=== PATIENT | female | born 1975 | race Caucasian/White ===

== ENCOUNTER 2024-03-22 21:37 | Emergency (ER) | payer MEDICARE, BC, SELFPAY ==
[2024-03-22 21:38] VITALS: BP 159/98
[2024-03-22 21:39] VITALS: BP 159/98; BMI 25.6
[2024-03-22 22:00] VITALS: BP 155/129
--- NOTE | 2024-03-22 22:23 | ED.GENMED ---
History of Present Illness
<Irma Smith MD - Last Filed: 03/23/24 17:07>
General
Chief Complaint: Fall
Source: patient and significant other
Time Seen by Provider: 03/22/24 22:17
History of Present Illness
History of Present Illness:
49-year-old female who went to '[place] hour' with her significant other who is here with her. He states that they drink alcohol, and when they were getting out of the car at their home, she fell, hitting her head. There was no loss of
consciousness. He assisted her into the house but once they noted the bleeding at the left forehead area they called 911. Patient denies headache, neck pain, chest pain, shortness of breath. She does describe left shoulder pain which is quite
uncomfortable. No numbness or tingling. No visual changes. Patient took the cervical collar off. This was promptly replaced when I entered the room.
Past History
<Irma Smith MD - Last Filed: 03/23/24 17:07>
Past History
ED Past Medical History: Other (Insulin-dependent diabetes)
ED Past Surgical History: Other (Kidney and pancreas transplant)
Social History
Tobacco: Non-smoker
Alcohol: Occasional
Drug: None
Phy Exam
<Irma Smith MD - Last Filed: 03/23/24 17:07>
Physical Exam
Physical Exam:
GENERAL: Alert , obviously intoxicated but lucid
EYE: pupils equal and reactive, EOMI, no photophobia
NECK: Supple, no significant adenopathy, no midline tenderness.
ENT: o/p clr, mmm.
CARDIAC: Regular rate and rhythm .
LUNGS: Clear breath sounds bilaterally, no acute respiratory distress, no wheezes/rales/rhonchi
ABDOMEN: Soft, without focal tenderness, no r/g, no cvat
NEUROLOGICAL: Alert and oriented, no focal neuro deficits
SKIN: Warm and dry, laceration noted L eyebrow
MUSCULOSKELETAL: No edema, well perfused. There is tenderness palpation noted at the AC joint and humeral head area with limited range of motion due to pain. No deformity noted. No tenderness to palpation noted of distal humerus elbow forearm etc.
PSYCH: Normal and appropriate interaction.
Course
<Irma Smith MD - Last Filed: 03/23/24 17:07>
Orders/Labs/Results
Orders:
Orders
03/22/24 23:00
Oxycodone/Acetaminophen [Percocet 5/325] 1 tablet PO NOW STA
03/22/24 23:02
Cardiac Monitoring- Treatment ONCE
03/23/24 00:00
CT Cervical Spine W/o Iv Contr Urgent
Reason For Exam: fall
CT Head W/o Iv Contrast Urgent
Reason For Exam: fall, head trauma
CR Shoulder, Trauma - Left Urgent
Reason For Exam: fall, pain
03/23/24 01:06
Oxycodone/Acetaminophen [Percocet 5/325] 1 tablet .ROUTE .STK-MED ONE
03/23/24 01:09
Oxycodone/Acetaminophen [Percocet 5/325] 1 tablet PO NOW STA
Vital Signs
Initial and Last Documented VS:
Initial Vital Signs
BP
159/98
03/22/24 21:38
Last Documented Vital Signs
Temp Pulse Resp BP Pulse Ox
97.8 F 76 11 161/97 97
03/22/24 22:04 03/23/24 00:00 03/23/24 00:00 03/23/24 00:00 03/23/24 00:00
<Waylon Alamo MD - Last Filed: 03/24/24 08:59>
Orders/Labs/Results
Orders:
Orders
03/22/24 23:00
Oxycodone/Acetaminophen [Percocet 5/325] 1 tablet PO NOW STA
03/22/24 23:02
Cardiac Monitoring- Treatment ONCE
03/23/24 00:00
CT Cervical Spine W/o Iv Contr Urgent
Reason For Exam: fall
CT Head W/o Iv Contrast Urgent
Reason For Exam: fall, head trauma
CR Shoulder, Trauma - Left Urgent
Reason For Exam: fall, pain
03/23/24 01:06
Oxycodone/Acetaminophen [Percocet 5/325] 1 tablet .ROUTE .STK-MED ONE
03/23/24 01:09
Oxycodone/Acetaminophen [Percocet 5/325] 1 tablet PO NOW STA
Vital Signs
Initial and Last Documented VS:
Initial Vital Signs
BP
159/98
03/22/24 21:38
Last Documented Vital Signs
Temp Pulse Resp BP Pulse Ox
97.8 F 76 11 161/97 97
03/22/24 22:04 03/23/24 00:00 03/23/24 00:00 03/23/24 00:00 03/23/24 00:00
Procedures
<Irma Smith MD - Last Filed: 03/23/24 17:07>
Laceration Closure
Left Eye brow:
Status of Wound: clean
Size of Wound in cm: 3.5
Description of Wound Edges: ragged
Preparation: cleaned with saline
Anesthesia: 1% Lidocaine with epi
Revision/Debridement: routine- no revision
Wound exploration: explored to base- no FB
Type of Closure: single layer closure
Skin Closure Material: 5-0 prolene
Number of sutures: 4
<Waylon Alamo MD - Last Filed: 03/24/24 08:59>
*Critical Care Note
Total Time (30-74mins, 75-104mins- exclusive of procedures): Not Applicable
<Irma Smith MD - Last Filed: 03/23/24 17:07>
Update Note
Update Note:
Patient presents to the Emergency Department with fall
Number and Complexity of Problems Addressed at the Encounter
� Chronic conditions affecting care:
� Acute Exacerbation and/or Progression of Chronic Illness:
� Differential Diagnosis includes: But not limited to intracranial bleed, cervical fracture, shoulder fracture, shoulder dislocation, etc. etc.
Amount and/or Complexity of Data to be Reviewed and Analyzed
� I performed an independent evaluation of and my interpretation is:
EKG:
CT: Vision report head CT no acute hemorrhage herniation or hydrocephalus, no fracture. Cervical CT vision report no acute fracture or traumatic malalignment. Multilevel degenerative changes of the cervical spine.
Xrays: Read by me, glenoid fracture noted, suspect AC separation
Laboratory Studies:
Other:
� Review of other/old records reveals:
� Clinical information was obtained by an independent historian: Partner who is bedside
� Prescriptions/Medications Considered but not given:
� Further testing considered but not performed:
Risk of Complications and/or Morbidity or Mortality of Patient Management
� Social determinants of health affecting care:
� Discussion with other providers (PCP, Hospitalists, Consultants, etc):
� Escalation of care including admission/observation vs risk of discharge considered: Pt still with collar in place, awaiting studies. She describes severe L shoulder pain, requesting pain meds repeatedly. Weighing r/b with
her intoxication, she is alert and I do not suspect that one dose of percocet will be overly sedating, will place on monitor.
X-ray consistent with AC separation and glenoid fracture. Patient will be given a shoulder sling, pain meds, and prompt Ortho follow-up. May need further imaging such as MR from orthopedics. Laceration repaired after wound cleaned, will need
suture removal in 5 days. Patient awake and alert, partner remains at bedside, aware of importance of follow-up and reasons to return to the ER.
<Waylon Alamo MD - Last Filed: 03/24/24 08:59>
Update Note
Update Note:
Patient presents to the Emergency Department with fall
Number and Complexity of Problems Addressed at the Encounter
� Chronic conditions affecting care:
� Acute Exacerbation and/or Progression of Chronic Illness:
� Differential Diagnosis includes: But not limited to intracranial bleed, cervical fracture, shoulder fracture, shoulder dislocation, etc. etc.
Amount and/or Complexity of Data to be Reviewed and Analyzed
� I performed an independent evaluation of and my interpretation is:
EKG:
CT: Vision report head CT no acute hemorrhage herniation or hydrocephalus, no fracture. Cervical CT vision report no acute fracture or traumatic malalignment. Multilevel degenerative changes of the cervical spine.
Xrays: Read by me, glenoid fracture noted, suspect AC separation
Laboratory Studies:
Other:
� Review of other/old records reveals:
� Clinical information was obtained by an independent historian: Partner who is bedside
� Prescriptions/Medications Considered but not given:
� Further testing considered but not performed:
Risk of Complications and/or Morbidity or Mortality of Patient Management
� Social determinants of health affecting care:
� Discussion with other providers (PCP, Hospitalists, Consultants, etc):
� Escalation of care including admission/observation vs risk of discharge considered: Pt still with collar in place, awaiting studies. She describes severe L shoulder pain, requesting pain meds repeatedly. Weighing r/b with
her intoxication, she is alert and I do not suspect that one dose of percocet will be overly sedating, will place on monitor.
X-ray consistent with AC separation and glenoid fracture. Patient will be given a shoulder sling, pain meds, and prompt Ortho follow-up. May need further imaging such as MR from orthopedics. Laceration repaired after wound cleaned, will need
suture removal in 5 days. Patient awake and alert, partner remains at bedside, aware of importance of follow-up and reasons to return to the ER.
1320... Discussed with patient and her significant other. Aware of thyroid nodule and need for follow-up ultrasound. Also aware of small chip fragment lateral to the C6 superior articular facet. Will follow-up closely with orthopedist and arrange
for follow-up ultrasound of her thyroid
ED Attending Note
<Irma Smith MD - Last Filed: 03/23/24 17:07>
-
Portions of this chart may have been created with voice recognition software.� Occasional wrong word or��sound alike� substitutions may have occurred due to the inherent limitations of voice recognition software.
Discharge Plan
Departure
Patient Disposition: Home (Routine Discharge)
Date of Disposition: 03/23/24
Time of Disposition: 01:13
Patient with high blood pressure during this ER visit?: Yes
Condition: Good
Discharge Problem:
glenoid fracture, AC separation, Laceration
Instructions: Shoulder Blade Fracture, Head Injury in Adults (DC), Laceration Repair With Stitches (DC), shoulder, BLOOD PRESSURE
Prescriptions:
New
oxycodone-acetaminophen [Percocet] 5-325 mg tablet
1 tab PO Q4HPRN PRN (Reason: pain) Qty: 11 0RF
No Action
atorvastatin 10 mg Tablet
10 mg PO QPM
famotidine 40 mg Tablet
40 mg PO QPM
prednisone 5 mg Tablet
5 mg PO DAILY
atenolol 25 mg Tablet
12.5 mg PO QPM
aspirin 81 mg Tablet,Delayed Release (Dr/Ec)
81 mg PO QPM
trazodone 150 mg Tablet
150 mg PO QPM
clonazepam 2 mg Tablet
1 mg PO DAILY
clonazepam 2 mg Tablet
2 mg PO QPM
fludrocortisone 0.1 mg Tablet
0.1 mg PO DAILY
tacrolimus 0.5 mg Capsule
1.5 mg PO Q12H
insulin aspart U-100 [Novolog FlexPen U-100 Insulin] 100 unit/mL (3 mL) Insulin Pen
1 sliding scale dose SC MEALS
Patient Comments:
03/22/2024: 1 unit for > 150 BS for every 15 carbs
Dialyvite 100-1 mg Tablet
1 tab PO DAILY
cholecalciferol (vitamin D3) 50 mcg (2,000 unit) Tablet
50 mcg PO DAILY
Creon 24,000-76,000 -120,000 unit Capsule,Delayed Release(Dr/Ec)
1 cap PO MEALS PRN (Reason: malabsorption)
insulin degludec [Tresiba FlexTouch U-100] 100 unit/mL (3 mL) Insulin Pen
10 unit SC DAILY
Referrals:
Afia Vines I., DO [Active] - 03/25/24
Elbert Gee MD [Family Provider] - Follow up in 2-3 days
Activity Restrictions/Additional Instructions:
YOU HAD 4 SUTURES PLACED. THESE WILL NEED TO BE REMOVED IN 5 DAYS. PLEASE SEE YOUR FAMILY DOCTOR TO HAVE THIS PERFORMED. YOU HAVE A FRACTURE OF YOUR GLENOID, WHICH IS PART OF YOUR SHOULDER BLADE. YOU WILL NEED FURTHER MANAGEMENT OF THIS WITH THE
ORTHOPEDIC DOCTOR. PLEASE CALL THE DOCTOR ON MONDAY FOR PROMPT FOLLOW-UP. YOU MAY NEED FURTHER TESTING. IF YOU DEVELOP INCREASING OR NEW PAIN, VOMITING, FEVER, NUMBNESS, TINGLING, SEVERE DIZZINESS, SEVERE HEADACHE, OR OTHER WORRISOME SIGNS,
PLEASE RETURN TO THE ER IMMEDIATELY.
Interventions
Interventions:
*Risk Screen - Suicide Last Done: 03/22/24 21:39
*General Assessment Last Done: 03/22/24 21:39
*Neglect/Abuse Screening Last Done: 03/22/24 21:39
ED- Fall Risk Assessment Last Done: 03/23/24 01:34
*ED COVID-19 Vaccine History Last Done: 03/22/24 21:39
*Nursing Disposition Last Done: 03/23/24 01:34
ED-Musculoskeletal Assessment Last Done: 03/22/24 22:04
ED- Neurological Assessment Last Done: 03/22/24 22:04
ED-Skin Assessment Last Done: 03/22/24 22:04
Discharge Date and Time
Discharge Date/Time: 03/23/24 01:34
Print Language: PERSIAN
[2024-03-22] MEDS: PERCOCET 5/325 1 TABLET PO (23:04)
[2024-03-22 23:12] VITALS: BP 175/100
[2024-03-23] VITALS: BP 161/97
[2024-03-23] MEDS: PERCOCET 5/325 1 TABLET PO (01:09)
== END 2024-03-23 01:34 | disposition home or self-care (01) ==
LOC: EMR 21:37
PROVIDERS: EMERGENCY PHYSICIAN Emergency Medicine; FAMILY PHYSICIAN Internal Medicine
DX: S01.112A Laceration without foreign body of left eyelid and periocular area, initial encounter (principal); S42.141A Displaced fracture of glenoid cavity of scapula, right shoulder, initial encounter for closed fracture; S43.102A Unspecified dislocation of left acromioclavicular joint, initial encounter; V48.4XXA Person boarding or alighting a car injured in noncollision transport accident, initial encounter; E11.9 Type 2 diabetes mellitus without complications; Z79.4 Long term (current) use of insulin; Z94.83 Pancreas transplant status
CPT/HCPCS: 12013; 99284; 70450; 72125; 73030

== ENCOUNTER → 2024-04-01 07:23 | Outpatient (REF) | payer MEDICARE, BC, SELFPAY | LOC: RAD 07:23 | PROVIDERS: ATTENDING PHYSICIAN Orthopaedic Surgery; FAMILY PHYSICIAN Internal Medicine | DX: M25.512 Pain in left shoulder (principal) | CPT/HCPCS: 73200 ==

== ENCOUNTER → 2024-06-26 18:13 | Outpatient (REF) | payer MEDICARE, BC, SELFPAY | LOC: PAVMRI 18:13 | PROVIDERS: ATTENDING PHYSICIAN Physician Assistant Surgical; FAMILY PHYSICIAN Internal Medicine | DX: M25.512 Pain in left shoulder (principal); M54.12 Radiculopathy, cervical region | CPT/HCPCS: 72141; 73221 ==

== ENCOUNTER → 2024-10-30 06:53 | Outpatient (REF) | payer MEDICARE, BC, SELFPAY | LOC: RAD 06:53 | PROVIDERS: ATTENDING PHYSICIAN Internal Medicine; FAMILY PHYSICIAN Internal Medicine; OTHER PHYSICIAN Internal Medicine Nephrology | DX: N18.5 Chronic kidney disease, stage 5 (principal); Z01.818 Encounter for other preprocedural examination; E04.1 Nontoxic single thyroid nodule | CPT/HCPCS: 74176; 76536 ==

== ENCOUNTER 2024-11-23 00:17 | Inpatient (IN) | payer MEDICARE, BC, SELFPAY ==
[2024-11-22 20:03] VITALS: BP 129/84
[2024-11-22 20:21] VITALS: BMI 23.4
[2024-11-22 20:22] VITALS: BP 139/85
[2024-11-22 20:52] LABS: Hematocrit 29.4 % (37.0-47.0); Hemoglobin 10.2 g/dL (12.0-16.0); Mean Corp Hgb Conc. 34.7 g/dL (33.0-37.0); Mean Corpuscular Volume 89.1 fL (81.0-99.0); Nucleated Red Blood Cells % 0 %; Platelet Count 145 10^3/uL (130-400); Red Cell Dist. Width 11.7 % (11.5-14.5)
[2024-11-22] MEDS: LIDOCAINE 4% PATCH 1 PATCH TOPICAL (20:55)
[2024-11-22] MEDS: TYLENOL 650 MG PO (20:55)
--- NOTE | 2024-11-22 21:00 | ED.GENMED ---
History of Present Illness
General
Chief Complaint: Change in Mental Status
Source: patient
Exam Limitations: none
Time Seen by Provider: 11/22/24 20:28
Nursing documentation reviewed up to this point in time: agreed with
History of Present Illness
History of Present Illness:
Patient is a 49-year-old female with history of hyperlipidemia, GERD, type 1 diabetes s/p kidney transplant who presents to the emergency department for evaluation of altered mental status. Patient boyfriend who lives with her states that this has
been an ongoing issue over the past approximately 1-2 weeks although seems to be worsening. There have been multiple instances over the past week where patient has been confused as to where she is. She has also been communicating with people that
are not present as well as supposedly 'packing for a trip that they are not going'.
Patient also reports feelings of dizziness and lightheadedness as well as ataxia and difficulties walking due to an unsteady gait. She states she has had a few falls recently although does not believe she hit her head.
Patient reportedly has somewhat chronic headaches and nausea which have been essentially baseline. She has had no episodes of vomiting or fevers. No neck pain. She denies any dysuria.
Patient states she drinks approximately 1 drink per day.
Patient has a history of kidney transplants and apparently is going to be going back on the transplant list soon as her kidney function has been progressively worsening. She follows with a plastics factory worker down at [place].
Past History
Past History
ED Past Medical History: Other (Insulin-dependent diabetes)
ED Past Surgical History: Other (Kidney and pancreas transplant)
Social History
Tobacco: Non-smoker
Alcohol: Occasional
Drug: None
Review of Systems
Review of Systems
Allergies reviewed?: Yes
All Other Systems: ROS reviewed and negative except as documented in HPI and ROS
Phy Exam
Physical Exam
Physical Exam:
Vitals: Patient's vital signs are stable. Afebrile
General: Patient is in no apparent distress.
Skin: Warm and dry, no rashes or lesions
Head: Normocephalic, atraumatic
Eyes: Sclera nonicteric. EOMs intact. No nystagmus.
Throat: Protecting airway
Neck: Normal ROM, no cervical spine tenderness, no meningismus
Cardiac: Regular rate and rhythm, no murmurs.
Pulm: Normal respiratory effort, no wheezes, rales, rhonchi heard on exam
Abdomen: Abdomen soft. No abdominal tenderness.
Back: No midline spinal tenderness. Mild tenderness right paralumbar region. No ecchymoses.
Extremities: Healing ecchymoses to left medial hand. No evidence of cyanosis or edema. Strength 5/5 in bilateral upper and lower extremities. Sensation intact bilaterally.
Neuro: AAOx3. CN II-XII intact to examination. No facial droop or asymmetry. Somewhat shuffling gait with slow speech
Psychiatric: Normal affect.
Course
Orders/Labs/Results
Orders:
Orders
11/22/24 20:07
ECG [Electrocardiogram (*1)] Urgent
Reason for Study: Vertigo / Dizzy
EKG- Treatment ONCE
11/22/24 20:38
Complete Blood Count/With Diff Urgent
11/22/24 20:49
CT Head W/o Iv Contrast Urgent
Comment:
Reason For Exam: AMS, ataxia
Drug Screen, Urine [Urine Drug Abuse Screen] Urgent
Date Specimen was Collected: 11/22/24
Time Specimen was Collected: 22:36
Urinalysis Reflex To Culture Urgent
Date Specimen was Collected: 11/22/24
Time Specimen was Collected: 22:36
11/22/24 20:50
Acetaminophen [Tylenol] 650 mg PO NOW STA
Lidocaine [Lidocaine 4% Patch] 1 patch TOPICAL NOW STA
Apply Lidocaine patch(s) to:: Right lower back
11/22/24 20:59
Ammonia Urgent
Comment: MUST BE COLLECTED.
11/22/24 21:30
Alcohol Urgent
Comprehensive Metabolic Panel Urgent
HCG, Serum Qualitative Screen Urgent
11/22/24 22:34
0.9% Sodium Chloride 500 ml [Nss] 500 ml IV BOLUS
11/22/24 23:39
Admit/Transfer Patient As Directed
Co-Sign Provider:
Level of Care: Inpatient admission
Assign to:: Medical/Surgical
Physician / Group: Alonzo Alvarado
Diagnosis: change in mental status, normal pressure hydrocephalus
Reason for Hospitalization: change in mental status, normal pressure hydrocephalus
Expected length of stay greater than two midnights?: Yes
ELOS- Estimated Length of Stay in days: 3
I certify the patient meets the requirements for IP care: Yes
PRN Pain Medication Management As Directed
May give lesser potent ordered pain med per pt: Yes
preference::
Protocol:: Medication orders for pain may be administered in a
manner that supports deferring to patient preference
when the pt is:
- Requesting an ordered lesser potent pain medication.
Least to most potent pain medications are defined
as: acetaminophen < NSAID < tramadol < opioids
(morphine, oxycodone, hydromorphone).
- Requesting a lesser dose of the same medication IF
ORDERED.
- Requesting a less intrusive route of administration
if both routes are prescribed by the provider (PO <
IV).
11/22/24 23:41
Code Status As Directed
Resuscitation Status: Full Code
11/23/24 00:00
CR Hand - Left Min 3 Views Urgent
Reason For Exam: Fall, trauma
11/23/24 00:47
0.9% Sodium Chloride 1000 ml [Nss] 1,000 ml IV 80 mls/hr
Dextrose 50%-Water [Dextrose 50% Syringe] 12.5 grams IV [id number] PRN
Glucagon [GlucaGen] 1 mg IM PRN PRN
Heparin 5,000 units SC Q8
Tacrolimus [Prograf] 1.5 mg PO Q12@1000,2200
11/23/24 00:47
Consult Notification Routine
Specialty to Notify: Nephrology
NEPHROLOGY CONSULT Routine
Consulting Provider: Fernando Dodge
Was physician already notified: No
Reason for consult: Renal Transplant, NICHOLAS
NEUROLOGY CONSULT Routine
Consulting Provider: Reese David
Was physician already notified: Yes
MR Brain Without Contrast Routine
Comment:
Reason For Exam: NPH
Recent pill cam endoscopy?: No
Activity As Directed
Activity Level: As Tolerated
Bedside Glucose Monitoring As Directed
Frequency: AC&HS
Additional Instructions:: Change to q6h if pt on TPN, tube feeding or not eating
Records Request [Obtain Records] As Directed
Dates of Information to be Released: most recent
Type of Information Requested: Lab Results
Last Office Visit H&P
Obtain Records from: [facility]
Vital Signs As Directed
Frequency: Per unit guidelines
Weight As Directed
Frequency: Once
Comment: on admission
Pt Eval And Treat Routine
Treatment: tenetti score
Activity Level: As Tolerated
Speech Therapy Eval & Treat Routine
Treatment: MOCA
DX Deep Vein Thrombosis Video Routine
11/23/24 Breakfast
1800 calorie (15 carb) Diabetic
Basic Metabolic Panel IN AM
Complete Blood Count/No Diff IN AM
Glycohemoglobin (HgbA1c) IN AM
TSH IN AM
Levothyroxine [Synthroid] 50 mcg PO DAILY @ 0600
11/23/24 07:30
Insulin Aspart Corrective Low [Novolog Flexpen-Low Resistance] See Protocol SC AC
Pancrelipase [Zenpep Delayed Release Capsule] 2 capsule PO AC
11/23/24 08:00
Fludrocortisone Acetate [Florinef] 0.1 mg PO DAILY
Prednisone [Deltasone] 5 mg PO DAILY
insulin degludec [Tresiba FlexTouch U-100] 11 unit SC DAILY
11/23/24 18:00
Atenolol [Tenormin] 12.5 mg PO QPM
Famotidine [Pepcid] 40 mg PO QPM
Abnormal Lab Results
11/22/24 11/22/24 11/22/24
20:38 20:59 21:30
WBC 4.2 L 10^3/uL
(4.8-10.8)
RBC 3.30 L 10^6/uL
(4.20-5.40)
Hgb 10.2 L g/dL
(12.0-16.0)
Hct 29.4 L %
(37.0-47.0)
MPV 11.5 H fL
(7.4-10.4)
Absolute Lymphs (auto) 0.7 L 10^3/uL
(1.2-3.4)
Neutrophils % 76.5 H %
(42.2-75.2)
Lymphocytes % 16.5 L %
(20.5-51.1)
Sodium 132 L mmol/L
(135-145)
BUN 28 H mg/dl
(7-17)
Creatinine 3.7 H mg/dL
(0.6-1.0)
Glucose 248 H mg/dl
(70-99)
Ammonia < 9 L umol/L
(9-30)
11/22/24 20:38
11/22/24 21:30
Vital Signs
Initial and Last Documented VS:
Initial Vital Signs
Temp Pulse Resp BP Pulse Ox
98.2 F 82 18 129/84 99
11/22/24 20:03 11/22/24 20:03 11/22/24 20:03 11/22/24 20:03 11/22/24 20:03
Last Documented Vital Signs
Temp Pulse Resp BP Pulse Ox
97.8 F 82 18 148/95 99
11/23/24 00:45 11/23/24 00:45 11/23/24 00:45 11/23/24 00:45 11/23/24 00:45
MDM/Problems Addressed
Differential Diagnosis Includes:
Not limited to: Acute hyponatremia, uremic syndrome, UTI, medication side effect, intracranial mass, intracranial hemorrhage, psychosis, etc.
MDM/Problems Addressed:
49-year-old female presenting with gradually progressing altered mental status over the past 1-2 weeks associated with ataxia and frequent falls. No fevers, chills, urinary symptoms, viral symptoms, etc. Patient's reports multiple episodes
of confusion as well as hallucinations and very unsteady gait resulting in multiple falls. Patient apparently has history of hyponatremia which presented similarly as well as type 1 diabetes s/p kidney transplant with current progressive worsening
in kidney function.
Patient arrives with stable vital signs. She is afebrile. Physical exam as above. Patient is alert and oriented x 3 without any focal neurologic deficits�she does have an unsteady/shuffling gait as well as somewhat slow speech and generalized
confusion. Differential broad however considerations include infectious process, electrolyte abnormality, intracranial process, uremia, medication side effect etc. Will start with lab work, urinalysis, CT head.
Update: Labs reviewed. Mild leukopenia and anemia. Chemistry reveals very mild hyponatremia with sodium of 132�which would not explain patient's presenting symptoms. Renal insufficiency noted with creatinine of 3.7 however no baseline for
comparison at this time. Do not suspect acute kidney injury. UA/UDS pending. CT scan reveals findings consistent with ventriculomegaly and concerns for normal pressure hydrocephalus. In context with presenting symptoms�this would be a
consideration. No other attributable cause of her presenting altered mental status. Case discussed with neurosurgery who feels no indication for emergent procedure at this time. Discussed with neurology, Dr. David. Given patient's progressively
worsening altered mental status and frequent falls, I do not feel she would be safe for discharge home. Will plan to admit patient for further neurology workup including MRI, possible lumbar puncture, and continued workup of possible NPH. Patient
excepted to hospitalist service in stable condition.
Chronic conditions affecting care:
Type 1 diabetes s/p kidney transplant
Acute Exacerbation and/or Progression of Chronic Illness:
N/A
*Radiology
Radiology exam reviewed: radiology read reviewed
*Pulse Oximetry
SaO2: 99
Oxygen Mode of Delivery: Room air
Patient hypoxic: no
*EKG
Interpreted by ED Provider?: Yes
EKG Intrepretation Date: 11/22/24
Interpretation: abnormal
Comparison EKG: no comparison EKG present
Heart Rate: 79
Rate: normal
Rhythm: sinus
[facility]: normal axis
QRS Pattern: low voltage
Ischemia: non-specific ST changes
*Paint And Table Edger Interpretation
Rate: normal
Interpretation: normal
Heart Rate: 80
Rhythm: sinus
*Critical Care Note
Total Time (30-74mins, 75-104mins- exclusive of procedures): Not Applicable
Patient Management
Discussion with other providers: Hospitalist and Machine Operator Picker (Case discussed with neurosurgery and neurology)
Escalation/DeEscalation of care consider admission/obs:
Admit for neurology evaluation and MRI given concern for altered mental status with frequent falls
ED Attending Note
-
Portions of this chart may have been created with voice recognition software.� Occasional wrong word or��sound alike� substitutions may have occurred due to the inherent limitations of voice recognition software.
Discharge Plan
Departure
Patient Disposition: Admit
Date of Disposition: 11/22/24
Time of Disposition: 22:36
Presentation/result/management discussed w/ accepting MD/DO: Hospitalist
Discharge Problem:
Normal pressure hydrocephalus
Interventions
Interventions:
*Risk Screen - Suicide Last Done: 11/22/24 20:03
*General Assessment Last Done: 11/22/24 20:22
*Neglect/Abuse Screening Last Done: 11/22/24 20:03
*ED- Fall Risk Assessment Last Done: 11/23/24 00:57
*ED COVID-19 Vaccine History Last Done: 11/22/24 20:22
*Nursing Disposition Last Done: 11/23/24 00:45
ED- Pulmonary Assessment Last Done: 11/23/24 00:57
ED- Neurological Assessment Last Done: 11/22/24 20:22
ED- Cardiac Assessment Last Done: 11/22/24 20:22
Discharge Date and Time
Discharge Date/Time: 11/23/24 00:58
[2024-11-22 21:17] LABS: Ammonia < 9 umol/L (9-30)
[2024-11-22 21:45] LABS: HCG, Serum Qualitative Screen Negative
[2024-11-22 21:57] LABS: ALT (SGPT) < 10 U/L (0-35); AST (SGOT) 14 U/L (14-36); Albumin 4.2 g/dl (3.5-5.0); Alkaline Phosphatase 53 U/L (38-126); Blood Urea Nitrogen 28 mg/dl (7-17); Calcium 9.2 mg/dl (8.4-10.2); Carbon Dioxide 26 mmol/L (22-30); Chloride 100 mmol/L (98-107); Estimated Creatinine Clearance 16 ml/min; Glucose 248 mg/dl (70-99); Potassium 4.2 mmol/L (3.5-5.1); Sodium 132 mmol/L (135-145); Total Protein 6.7 g/dl (6.3-8.2); eGFR 14.19
[2024-11-22 22:48] VITALS: BP 132/90
[2024-11-22] MEDS: NSS 500 IV (22:48)
--- NOTE | 2024-11-22 22:49 | EDRN ---
Patient ambulated to the restroom and back in bed resting comfortably was unable to urinate at this time will try again
--- NOTE | 2024-11-22 22:51 | HPS.HSE ---
Addendum entered and electronically signed by Alonzo Alvarado DO 11/23/24 00:13:
Patient seen and examined independently. Agree with findings and plan as set forth by NINO Arenas.
Patient is a 49y F with PMH significant for DM-I, renal failure s/p transplant x 2, pancreatic insufficiency s/p transplant and recently diagnosed hypothyroidism who presents to ED for evaluation of confusion / mental status change. History
obtained from patient and significant other at the bedside. Patient with new confusion for the past 1-2 weeks. Awake and alert, but disoriented and confused at times. Patient complains of nausea and diffuse itching. She has been unsteady on her
feet and has had multiple falls over the past 2 weeks.
Patient was started on Ozempic 2 months ago - last dose was 2 weeks ago and it was discontinued.
She was also newly started on levothyroxine in August.
No other new medications, etc.
Ass:
Disorientation / TME
NICHOLAS on CKD III
Renal Transplant Status
DM-I s/p Remote Pancrease Transplant
Benign Hypertension
Hypothyroidism
GERD
Anxiety / Depression
Plan:
Admit for further evaluation and treatment.
Change in mental status / disorientation potentially due to med effect (Ozempic), NPH, etc.
CT scan concerning for NPH.
MRI in AM. Tentative plan for LP for further evaluation.
Neurology eval for additional recommendations.
Remain off of Ozempic. Hold other sedating meds including trazodone, clonazepam, etc.
Boyfriend believes that usual SCr in is the 'high 2s' - currently 3.7.
Gentle IVFs overnight.
Avoid nephrotoxic agents - including any IV contrast agents with imaging.
Continue usual transplant med regimen. Check tacro level.
Nephrology evaluation.
Update TFTs.
Follow for clinical changes / new symptoms / etc.
Original Note:
Family Physician
-
Family Physician: Elbert Gee
Chief Complaint
-
change in mental status
History of Present Illness
Patient is a 49-year-old female with past medical history significant for DMI, hypertension, hyperlipidemia, hypothyroid and GERD who presented to [facility] ED for evaluation of change in mental status. Patient and boyfriend at bedside assisted in HPI.
Patient boyfriend who lives with patient reports increased confusion for about the last week and half. He reports that patient has been confused as to where she is, what she is doing or will be doing. He states she at one point was packing for a
trip that is not scheduled. Patient reports dizziness and feeling off balance with unsteady gait. She does report a few falls recently but denies hitting her head. Patient reports nausea that is baseline with no change. Denies any fever, chills,
cough, shortness of breath, chest pain, vomiting, bowel changes or urinary symptoms.
Medical History
Past Medical History
Past Medical History: Reports Other
Additional Past Medical History:
DM I
hypothyroid
hypertension
hyperlipidemia
GERD
osteoporosis
Past Surgical History: Reports Other
Additional Past Surgical History:
kidney transplant x2
pancreatic transplant
bowel resection
colon resection
fistula placement and removal
C7-T1 ILESI W/SED 07/18/24
L C7-T1 ILESI W/SED 08/22/24
Social History
Tobacco: Former Smoker
Alcohol: Occasional
Drug: None
Personal: Partner
Living: With Roomate (with boyfriend )
Employment: Not Employed
Family History
Family History: Other (Sister: DM I; Father: CVA, Pulmonary Fibrosis )
Allergies / Home Medications
Allergies reflects when Allergies were last updated in [employer].
Home Medications with original date entered in [employer]
Allergy/Medication List:
Allergies
Allergy/AdvReac Type Severity Reaction Status Date / Time
codeine Allergy Itching Verified 11/22/24 20:02
Home Medications
aspirin 81 mg tablet,delayed release 81 mg PO QPM 03/22/24
atenolol 25 mg tablet 12.5 mg PO QPM 03/22/24
atorvastatin 10 mg tablet 10 mg PO QPM 03/22/24
cholecalciferol (vitamin D3) 50 mcg (2,000 unit) tablet 50 mcg PO DAILY 03/22/24
clonazepam 2 mg tablet 1 mg PO DAILY 03/22/24
clonazepam 2 mg tablet 2 mg PO QPM 03/22/24
famotidine 40 mg tablet 40 mg PO QPM 03/22/24
fludrocortisone 0.1 mg tablet 0.1 mg PO DAILY 03/22/24
insulin aspart U-100 100 unit/mL (3 mL) subcutaneous pen (Novolog FlexPen U-100 Insulin aspart) 1 sliding scale dose SC MEALS 03/22/24
insulin degludec 100 unit/mL (3 mL) subcutaneous pen (Tresiba FlexTouch U-100 insulin) 11 unit SC DAILY 03/22/24
prednisone 5 mg tablet 5 mg PO DAILY 03/22/24
tacrolimus 0.5 mg capsule, immediate-release 1.5 mg PO Q12H 03/22/24
trazodone 150 mg tablet 300 mg PO QPM 03/22/24
vitamin B complex-vitamin C 100 mg-folic acid 1 mg tablet (Dialyvite) 1 tab PO DAILY 03/22/24
diphenhydramine HCl 50 mg capsule 100 mg PO HS 11/22/24
levothyroxine 50 mcg tablet 50 mcg PO DAILY 11/22/24
idbjsa-pfbyjtyc-yuptjta 24,000-76,000-120,000 unit capsule,delayed rel (Creon) 1 cap PO DAILY 11/22/24
Review of Systems
-
History Source: Patient
Constitutional: Reports No Symptoms
EENT: Reports No Symptoms
Respiratory: Reports No Symptoms
Cardiac: Reports No Symptoms
Abdomen/GI: Reports Nausea
: Reports No Symptoms
Musculoskeletal: Reports No Symptoms
Skin: Reports No Symptoms
Neurological: Reports Dizzy, Headache and Other (confusion that wax and wanes, unsteady gait )
Endocrine: Reports No Symptoms
Hematologic/Lymphatic: Reports No Symptoms
Psych: Reports No Symptoms
Physical Exam
Vital Signs
Vital Signs
Temp Pulse Resp BP Pulse Ox
98.2 F 85 17 139/85 96
11/22/24 20:03 11/22/24 22:47 11/22/24 22:47 11/22/24 20:22 11/22/24 21:45
Physical Exam
General: Well Developed, Well Nourished, No Apparent Distress and Obese
HEENT: NormoCephalic, Moist mucous membranes, Atraumatic, Nose Appears Normal and Ears Appear Normal
Respiratory: Clear
Cardiac: S1/S2 and Regular Rhythm
Breast: Deferred by me
GI: Soft, Non Tender, Non Distended and Normal Bowel Sounds
Rectal: Deferred by Provider
Genito-urinary: Deferred by me
Musculoskeletal: No Clubbing, No Cyanosis and No Edema
Skin: Warm and IV/Catheter Site
Neuro: Awake, Alert and Nonfocal/grossly intact
Psych: Calm
Laboratory Results
-
11/22/24 20:38
11/22/24 21:30
Laboratory Results
Total Bilirubin 0.6 mg/dl (0.2-1.3) 11/22/24 21:30
AST 14 U/L (14-36) 11/22/24 21:30
ALT < 10 U/L (0-35) 11/22/24 21:30
Alkaline Phosphatase 53 U/L (38-126) 11/22/24 21:30
Data Reviewed
-
Medical Tests (Nuc Med, Echo, EKG etc): Report Reviewed by me (EKG: NORMAL SINUS RHYTHM POSSIBLE LEFT ATRIAL ENLARGEMENT LOW VOLTAGE QRS NONSPECIFIC T WAVE ABNORMALITY)
Lab Data: Labs Reviewed by me (Na+ 132, BUN 28, Creat 3.7, est CrCl 16, eGFR 14.19)
Impression/Plan
-
IMPRESSION/PLAN:
#change in mental status likely 2/2 ventriculomegaly and concern for NPH
Na+ 132, BUN 28, Creat 3.7, est CrCl 16, eGFR 14.19
EKG: NORMAL SINUS RHYTHM
POSSIBLE LEFT ATRIAL ENLARGEMENT
LOW VOLTAGE QRS
NONSPECIFIC T WAVE ABNORMALITY
Head CT: report pending
- Admit to med/surg
- Consult Neurology
- hold alerting medications
- MRI in morning
- Consult PT for tenetti score
- Consult speech for MOCA
#DM I
- AccuChecks AC & HS
- SSI
- continue Tresiba
#hypertension
- continue atenolol with parameters
#hyperlipidemia
- hold atorvastatin
#hypothyroid
- continue levothyroxine
- check TSH
#GERD
- continue famotidine
#kidney transplant x2
#pancreatic transplant
BUN 28, Creat 3.7, est CrCl 16, eGFR 14.19
- continue prednisone and tacrolimus
- monica IVF NSS 80cc/hr
- monitor BMP
Code status: full code
DVT prophylaxis: heparin sq
[2024-11-23 00:45] VITALS: BP 148/95; BMI 22.7
[2024-11-23 01:02] LABS: Glucose - Point of Care 148 mg/dl (70-99)
[2024-11-23] MEDS: HEPARIN 5000 UNITS SC ×4 (01:46→23:00)
[2024-11-23] MEDS: NSS 1000 IV ×2 (01:46→15:21)
[2024-11-23] MEDS: PROGRAF 1.5 MG PO ×3 (01:47→22:09)
[2024-11-23] MEDS: TYLENOL 1000 MG PO (02:53)
--- NOTE | 2024-11-23 03:25 | PTCARENOTE ---
Receive pt from ER. Pt alert oriented X3, calm and cooperative. Pt assist X1 to her bed, appears weak. Pt oriented to the room, call franco within reach and bed alarm placed for pt safety. VSS (T=97.8, HR=82, RR=18, XK=617/95, SpO2=99% on RA). Pt
complains about headache (12/29). IVFs infusing as per order, and Tylenol 1000mg given for headache. Will continue to monitor the pt.
[2024-11-23 03:46] LABS: Urine Character Clear (Clear)
[2024-11-23 04:03] LABS: Urine Squamous Cell >30 /LPF (Few)
[2024-11-23 04:07] LABS: Urine Red Blood Cell 0-2 /HPF (0-2); Urine White Cell 16-20 /HPF (0-5)
[2024-11-23] MEDS: SYNTHROID 50 MCG PO (05:09)
[2024-11-23 06:18] LABS: Hematocrit 29.3 % (37.0-47.0); Hemoglobin 10.2 g/dL (12.0-16.0); Mean Corp Hgb Conc. 34.8 g/dL (33.0-37.0); Mean Corpuscular Volume 89.3 fL (81.0-99.0); Platelet Count 145 10^3/uL (130-400); Red Cell Dist. Width 11.5 % (11.5-14.5)
[2024-11-23 06:44] LABS: Blood Urea Nitrogen 25 mg/dl (7-17); Calcium 9.1 mg/dl (8.4-10.2); Carbon Dioxide 24 mmol/L (22-30); Chloride 106 mmol/L (98-107); Estimated Creatinine Clearance 17 ml/min; Glucose 96 mg/dl (70-99); Potassium 3.6 mmol/L (3.5-5.1); Sodium 138 mmol/L (135-145); eGFR 15.71
[2024-11-23 07:11] LABS: TSH 0.47 uIU/ml (0.47-4.68)
[2024-11-23 07:21] LABS: Glucose - Point of Care 92 mg/dl (70-99)
[2024-11-23 07:30] VITALS: BP 147/99
--- NOTE | 2024-11-23 08:09 | W.PN.HOSP.TC ---
Today's Communication/Plan
-
Neurology and nephrology consults. IV antibiotics.
Assessment / Plan
Assessment / Plan
Physical exam:
General: Acutely ill
HEENT: Normocephalic, Atraumatic and Moist Mucous Membranes
Respiratory: Clear to Auscultation; Negative Wheezes, Rales or Rhonchi
Cardiac: Regular Rhythm and S1/S2
GI: Soft, Nontender and Nondistended
Musculoskeletal: No Clubbing, No Cyanosis and No Edema
Neuro: Lethargic and Disoriented, encephalopathic.
Psych: Judgment and insight
A/P:
#change in mental status likely 2/2 ventriculomegaly and concern for NPH. Also possibility of UTI
Na+ 132, BUN 28, Creat 3.7, est CrCl 16, eGFR 14.19
EKG: NORMAL SINUS RHYTHM
POSSIBLE LEFT ATRIAL ENLARGEMENT
LOW VOLTAGE QRS
NONSPECIFIC T WAVE ABNORMALITY
Head CT: report pending
- Admit to med/surg
- Consult Neurology
- hold alerting medications
- MRI in morning
- Consult PT for tenetti score
- Consult speech for MOCA
- Start IV Rocephin and follow-up urine culture
#DM I
- AccuChecks AC & HS
- SSI
- continue Tresiba
#hypertension
- continue atenolol with parameters
#hyperlipidemia
- hold atorvastatin
#hypothyroid
- continue levothyroxine
- check TSH
#GERD
- continue famotidine
#kidney transplant x2
#pancreatic transplant
BUN 28, Creat 3.7, est CrCl 16, eGFR 14.19
- continue prednisone and tacrolimus
- monica IVF NSS 80cc/hr
- monitor BMP
Code status: full code
DVT prophylaxis: heparin sq
Anticipated Discharge: 24 - 48 hours
Subjective/Interval History
-
Date of Service: November 23, 2024
Patient remains encephalopathic. Afebrile
Objective Data
-
Labs:
Laboratory Results
11/22/24 11/22/24 11/23/24
20:38 21:30 06:04
WBC 4.2 L
Hgb 10.2 L
Hct 29.4 L
Plt Count 145
Sodium Cancelled 132 L 138
Potassium Cancelled 4.2 3.6
Chloride Cancelled 100 106
Carbon Dioxide Cancelled 26 24
BUN Cancelled 28 H 25 H
Creatinine Cancelled 3.7 H 3.4 H
Glucose Cancelled 248 H 96
Calcium Cancelled 9.2 9.1
Total Bilirubin Cancelled 0.6
AST Cancelled 14
ALT Cancelled < 10
Alkaline Phosphatase Cancelled 53
11/23/24
06:05
WBC 4.4 L
Hgb 10.2 L
Hct 29.3 L
Plt Count 145
Sodium
Potassium
Chloride
Carbon Dioxide
BUN
Creatinine
Glucose
Calcium
Total Bilirubin
AST
ALT
Alkaline Phosphatase
Vital Signs:
Vital Signs
Temp Pulse Resp BP Pulse Ox
97.4 F 76 18 147/99 98
11/23/24 07:30 11/23/24 07:30 11/23/24 07:30 11/23/24 07:30 11/23/24 07:30
I&O
11/22/24 11/23/24 11/24/24
06:59 06:59 06:59
Intake Total 340 / 340
Balance 340 / 340
[2024-11-23] MEDS: NOVOLOG FLEXPEN-LOW RESISTANCE SC ×2 (08:46→11:44)
[2024-11-23] MEDS: ZENPEP DELAYED RELEASE CAPSULE 2 CAPSULE PO ×3 (09:38→17:49)
[2024-11-23] MEDS: DELTASONE 5 MG PO (09:39)
[2024-11-23] MEDS: FLORINEF 0.1 MG PO (09:39)
--- NOTE | 2024-11-23 09:55 | W.CON.NEPH ---
Addendum entered and electronically signed by Fernando Dodge MD 11/24/24 12:16:
Additional details noted from patient's MyChart
Initial transplant 2001 [facility]
Transplant failure 2010 with hemodialysis
Subsequent transplant living unrelated from [id number]'s cousin [facility], positive crossmatch
2 episodes of antibody mediated rejection
Fludrocortisone started in 2017 because of lightheadedness and palpitations and presumed orthostasis. Symptoms improved
Also history of large bowel perforation requiring colectomy
Ozempic started by woodenware assembler to help mitigate insulin needs. Subsequently discontinued
Addendum entered and electronically signed by Fernando Dodge MD 11/23/24 12:54:
I have reviewed the below consultation and am in agreement with the following addendum.
Appears her first transplant was a donor kidney done at [facility].
Second renal transplant was a living unrelated from her [id number]'s cousin done at [facility].
It appears that she then got a pancreas after kidney transplant not long after. The patient is unable to provide further details regarding that.
From her MyChart records, 09/17/2024 creatinine 3.34, on 07/24/2024 tacrolimus 4.2
She does not recall why she is taking fludrocortisone.
She says that Ozempic was started because of difficulty losing weight and it was started by her outpatient construction superintendent. She is not certain why it was discontinued.
Falls at home appear only to occur when she is standing. Is uncertain whether or not she actually loses consciousness. She has no recollection if that is the case.
She reports no heart disease.
Addendum to physical exam:
Old AV fistula left upper arm, without thrill or bruit
No tenderness over latest transplant presumed to be located in the left lower quadrant
Report of head CT on 11/22/2024 reviewed with ventriculomegaly
X-ray of the hand on 11/23/2024 and reading no fracture
EKG on 11/22/2024 memory normal sinus rhythm nonspecific T wave abnormality
Impression
hydrocephalus
Confusion, falls (no incontinence)
Living unrelated renal transplant, pancreas after kidney transplant
Chronic kidney disease stage 4
Type I diabetes mellitus
Pancreatic insufficiency, pancreatic transplant in her 20s following the first renal transplant
Chronic immunosuppression with tacrolimus prednisone only
hypertension
Acquired hypothyroidism
GERD
Anxiety/Depression
Hyperlipidemia
Plan
Follow BMP, creatinine appears to be at baseline at this time
Check tacrolimus level, continue tacrolimus and prednisone, stress dose steroids not required
For lumbar puncture to examine for infectious causes as well as for NPH
No evidence to support PML given recent CT scan
Continue IV fluids
Fludrocortisone may be continued at this time
Original Note:
Consultation
-
Date/Time Consultation Requested: 11-23-24
Date/Time Consultation Performed: 11-23-24
Requesting Provider: Dr. Alonzo Alvarado
Performing Provider: Dr. Fernando Dodge
Reason for Consultation: NICHOLAS; renal transplant * 2; DM1
Medical History
-
Chief Complaint: Confusion
History of Present Illness:
Ivanna Roy, 49-year-old with type I diabetes mellitus, renal transplant * 2 at [facility] (first in her 20s; second in her 30s for graft failure), heading towards a third transplant, pancreatic failure s/p transplant, on tacrolimus and prednisone
daily immunosuppression, is admitted for 2 weeks of progressive confusion. Limited history obtained from the patient, who is still confused. Mostly obtained from [facility] on her phone and chart review. Creatinine has ranged from 3.1-3.5 this year,
per her MyChart.
She was in her usual state of health about 2 weeks ago when she started feeling confused and disoriented. Reportedly, had been unsteady on her feet with multiple falls; one incident for packing for a trip when there was going to be no trips. Patient
states that she has been intermittently nauseous and itchy, and has been slurring her speech. Denies urinary incontinence. No other medical complaints or changes to her health. No recent illnesses or known sick contacts. She was started on
levothyroxine in August 2024, and discontinued semaglutide 2 weeks ago.
Past Medical History
Past Medical History: GERD, HTN, Hypothyroidism, IDDM (Type 1), Renal Failure (Renal transplant * 2 (second time for graft failure); reportedly heading towards a third transplant), Psychiatric (anxiety/depression) and Other (Pancreatic failure s/p
transplant)
Past Surgical History: Other (Renal transplant * 2; pancreatic transplant; bowel resection; colon resection; C7-T1 ILESI W/SED 2024; L C7-T1 ILESI W/SED 2024 )
Social History
Tobacco: Former Smoker
Alcohol: Occasional
Drug: None
Personal: Partner
Living: With Family (significant other)
Family History
Family History: Diabetes (Sister - Type 1 DM; Father - CVA, pulmonary fibrosis)
Allergies / Home Medications
Allergy/AdvReac Type Severity Reaction Status Date / Time
codeine Allergy Itching Verified 11/22/24 20:02
�Medication �Instructions �Recorded �Confirmed �Type
aspirin 81 mg tablet,delayed 81 mg PO QPM 03/22/24 11/22/24 History
release
atenolol 25 mg tablet 12.5 mg PO QPM 03/22/24 11/22/24 History
atorvastatin 10 mg tablet 10 mg PO QPM 03/22/24 11/22/24 History
cholecalciferol (vitamin D3) 50 50 mcg PO DAILY 03/22/24 11/22/24 History
mcg (2,000 unit) tablet
clonazepam 2 mg tablet 1 mg PO DAILY 03/22/24 11/22/24 History
clonazepam 2 mg tablet 2 mg PO QPM 03/22/24 11/22/24 History
famotidine 40 mg tablet 40 mg PO QPM 03/22/24 11/22/24 History
fludrocortisone 0.1 mg tablet 0.1 mg PO DAILY 03/22/24 11/22/24 History
insulin aspart U-100 100 unit/mL 1 sliding scale dose SC MEALS 03/22/24 11/22/24 History
(3 mL) subcutaneous pen (Novolog
FlexPen U-100 Insulin aspart)
insulin degludec 100 unit/mL (3 11 unit SC DAILY 03/22/24 11/22/24 History
mL) subcutaneous pen (Tresiba
FlexTouch U-100 insulin)
prednisone 5 mg tablet 5 mg PO DAILY 03/22/24 11/22/24 History
tacrolimus 0.5 mg capsule, 1.5 mg PO Q12H 03/22/24 11/22/24 History
immediate-release
trazodone 150 mg tablet 300 mg PO QPM 03/22/24 11/22/24 History
vitamin B complex-vitamin C 100 1 tab PO DAILY 03/22/24 11/22/24 History
mg-folic acid 1 mg tablet
(Dialyvite)
diphenhydramine HCl 50 mg capsule 100 mg PO HS 11/22/24 11/22/24 History
levothyroxine 50 mcg tablet 50 mcg PO DAILY 11/22/24 11/22/24 History
kphdjm-humlfukb-jjwkpld 1 cap PO AC 11/22/24 11/22/24 History
24,000-76,000-120,000 unit
capsule,delayed rel (Creon)
Review of Systems
-
Unable to obtain full review of systems at this time due to: Acuity (Confused)
Neurological: Dizzy and Other (Confused)
Physical Exam
Vital Signs
Vital Signs
Temp Pulse Resp BP Pulse Ox
97.4 F 76 18 147/99 98
11/23/24 07:30 11/23/24 07:30 11/23/24 07:30 11/23/24 07:30 11/23/24 07:30
Lab Results
WBC 4.4 10^3/uL (4.8-10.8) L 11/23/24 06:05
RBC 3.28 10^6/uL (4.20-5.40) L 11/23/24 06:05
Hgb 10.2 g/dL (12.0-16.0) L 11/23/24 06:05
Hct 29.3 % (37.0-47.0) L 11/23/24 06:05
Plt Count 145 10^3/uL (130-400) 11/23/24 06:05
Sodium 138 mmol/L (135-145) 11/23/24 06:04
Potassium 3.6 mmol/L (3.5-5.1) 11/23/24 06:04
Chloride 106 mmol/L (98-107) 11/23/24 06:04
Carbon Dioxide 24 mmol/L (22-30) 11/23/24 06:04
BUN 25 mg/dl (7-17) H 11/23/24 06:04
Creatinine 3.4 mg/dL (0.6-1.0) H 11/23/24 06:04
eGFR 15.71 11/23/24 06:04
Glucose 96 mg/dl (70-99) 11/23/24 06:04
Calcium 9.1 mg/dl (8.4-10.2) 11/23/24 06:04
Albumin 4.2 g/dl (3.5-5.0) 11/22/24 21:30
Physical Exam
General: Awake and Alert; Negative Oriented (states we are in 1925)
HEENT: Anicteric and Dentition Intact
Respiratory: Clear and Nonlabored Respirations
Cardiac: S1/S2 and Regular Rate/Rhythm
Abdomen: Soft, Nontender and Nondistended
Genito-urinary: No Costovertebral Tender
Musculoskeletal: No Clubbing, No Cyanosis and No Edema
Skin: No Rash and No Bruising
Neuro: Other (slurred speech; apparent confusion; not oriented to time per above; dizzy and unsteady on feet)
Psych: Mood/afflect pleasant
Data Reviewed
-
Radiology: Report Reviewed by me and Discussed with Patient
CT Scan: Image Personally Visualized and interpreted and Discussed with Patient
Labs: Labs Reviewed by me and Discussed with Patient
Old Records: Reviewed (Patient's MyChart on her phone)
Assessment/Plan
-
Impression
Toxic metabolic encephalopathy/hydrocephalus
Status-post renal transplant * 2, first in her 20s and second in her 30s for graft failure
Chronic kidney disease stage IIIb-IV
Type I diabetes mellitus, insulin-dependent
Pancreatic insufficiency, pancreatic transplant in her 20s following the first renal transplant
Chronic immunosuppression
Primary hypertension
Acquired hypothyroidism
GERD
Anxiety/Depression
Hyperlipidemia
Plan
CT head and history suspicious for hydrocephalus.
Renal function at her baseline.
Creatinine 3.1-3.5 this year on MyChart; 3.4 today.
Continue tacrolimus and prednisone; check tacrolimus levels.
IV hydration.
Antibiotics and hydrocephalus management per primary/neurology.
Unclear why she is on fludrocortisone.
Would favor not re-starting a GLP-1 due to her history of pancreatic transplant.
Watch for masked hypoglycemia with her being on atenolol.
Follow BMP and glucose checks.
--- NOTE | 2024-11-23 10:10 | PTOTSP ---
Speech therapy
Presentation: Patient was partially oriented and experienced some intermittent moments of perseverations (date of , day, name). Patient's admission for AMS (currently confused) is likely a contributor to her presentation.
Swallowing Function: Patient was observed with several bites of regular consistency solids and sips (straw) of thin liquids in which patient appeared to tolerate as she did not exhibit any overt clinical s/sx of aspiration. Minimal prolonged
mastication of the regular consistency solid noted which is likely related to patient's current confusion.
FORENSIC MATERIALS ENGINEER observed RN administer medications whole with thin liquids in which patient appeared to tolerate as she did not exhibit any overt difficulty.
Patient denied dysphagia complaints.
Recommendations:
1) Continue reg/ thin
2) Standard aspiration precautions
3) Medications as tolerated
4) Consider cognitive assessment
Plan: FORENSIC MATERIALS ENGINEER will continue to follow; pending hospitalization.
--- NOTE | 2024-11-23 10:50 | PTOTSP ---
Speech therapy
Of note, patient's swallowing function was assessed 11/23/24. See 11/23/24 Speech evaluation note (swallowing) for details.
APPLICATIONS INTERN assessed patient's cognition with the use of the MOCA-Basic in which patient's score () fell below normal range.
The scores were as follows:
executive functionin/1
fluency: 0/2
orientation: 4/6
calculation: 13
abstraction: 3/3
delayed recall: 0/5
visuoperception: 1
namin/4
attention: 06/24
Total:
During the assessment, patient requested the APPLICATIONS INTERN repeat the directions several times and demonstrated delayed initiation, slow processing, and perseverations.
In sum, patient's baseline cognitive function is not documented at this time. However, patient's current cognitive functioning appears to be impaired evidenced by her clinical presentation and MOCA-B score () in which patient demonstrated
difficulty with executive functioning, fluency, calculation, delayed recall, and visuoperception.
Recommendations:
1) Continue reg/ thin
2) Standard aspiration precautions
3) Medications as tolerated
4) Cognitive therapy
Plan: APPLICATIONS INTERN will continue to follow; pending hospitalization.
[2024-11-23 11:28] LABS: Glucose - Point of Care 80 mg/dl (70-99)
[2024-11-23] MEDS: ROCEPHIN 1000 MG IV (11:30)
[2024-11-23] MEDS: STERILE WATER FOR INJECTION 10 ML IV (11:31)
[2024-11-23] MEDS: LANTUS SC (11:55)
--- NOTE | 2024-11-23 12:00 | PTCARENOTE ---
Pt oriented this am x 3 but sleepy. Pt states that she didn't sleep very well. AM blood sugar was 92, ate a couple of bites of her breakfast sandwich. Blood sugar on recheck was 80. Pt ordered for Lantus [address] Hwang aware and ordered
to hold Lantus.
[2024-11-23 12:06] VITALS: BP 138/89; BP 140/88; PULSE 78; O2SAT 98
[2024-11-23 12:31] LABS: Glycohemoglobin (HgbA1c) 7.1 % (4.0-5.6)
[2024-11-23] MEDS: TYLENOL 650 MG PO ×2 (13:32→20:48)
[2024-11-23] MEDS: B COMPLEX w/VITAMIN C 1 CAPLET PO (15:22)
[2024-11-23] MEDS: VITAMIN D3 (cholecalciferol) 50 MCG PO (15:22)
[2024-11-23] MEDS: KLONOPIN 1 MG PO (15:22)
[2024-11-23 15:30] VITALS: BP 140/62
[2024-11-23] MEDS: MIRALAX 17 GRAMS PO (15:31)
[2024-11-23] MEDS: SENOKOT 8.6 MG PO ×2 (15:31→20:48)
--- NOTE | 2024-11-23 16:13 | CM ---
Alert awake oriented patient who lives with her SO Shashank in a 2 story home with 1 steps to enter and 14 steps to bed/bathroom. She is assisted in activates of daily living.Shashank cooks and fills pill organizer. She does not drive .Pt is a transplant
x2 patient.Offered VN she requested [facility] .
No VN/SNF hx
Pharmacy [facility]
PCP Dr Elbert Eli
PLAN Home with [facility]
[2024-11-23 16:18] LABS: Glucose - Point of Care 256 mg/dl (70-99)
--- NOTE | 2024-11-23 16:32 | PTCARENOTE ---
Provided report to Kristian OLIVEROS on . Pt transferred to rm [id number] with belongings, chart, and meds.
[2024-11-23 16:39] VITALS: BP 142/99
--- NOTE | 2024-11-23 16:50 | CON.NEURO ---
Neuro Assessment/Plan
Assessment
head CT imgs rev'd, agree evidence of NPH
MRI brain w/o contrast imgs rev'd, same
Tinetti 19, MOCA [address]
head [address] and MRI imgs rev'd, ventricular dilation consistent with NPH
Tinetti 19, MOCA-B 15
good story for NPH
high volume tap followed by repeat PT and [employer]CH[employer] eval to see if Tinetti and MOCA improved SUNSHINE after procedure given CSF recycling 5x daily0
spoke with Dr Martins requesting high volume tap, procedure in AM even if it is the next day to allow PT and SONOGRAPHY TECHNICIAN eval afterwards, no need to supine 2 hrs after procedure
if workup neg for NPH I would pursue encephalitis workup given delusions
Consultation
Order
Date of Consultation: 11/23/24
Requesting Provider:
Reason for Consult:
Subjective/Objective
Subjective Data
Date of Service: November 23, 2024
from h&p:
Patient is a 49y F with PMH significant for DM-I, renal failure s/p transplant x 2, pancreatic insufficiency s/p transplant and recently diagnosed hypothyroidism who presents to ED for evaluation of confusion / mental status change. History
obtained from patient and significant other at the bedside. Patient with new confusion for the past 1-2 weeks. Awake and alert, but disoriented and confused at times. Patient complains of nausea and diffuse itching. She has been unsteady on her
feet and has had multiple falls over the past 2 weeks.
Patient was started on Ozempic 2 months ago - last dose was 2 weeks ago and it was discontinued.
She was also newly started on levothyroxine in August.
No other new medications, etc.
today speaking with patient's mother and SO, patient always a little off cognitively, with several months gradually worsening mentation which began insidiously and then worsening gait. Symptoms have been severe for the past 1.5-2 weeks, with
delusions, disorientation, such as asking SO not to be so loud as to avoid waking a relative who lives 300 miles away, and being awake at 5 am to prepare for a dinner democrat that isn't happening.
Objective Data
Vital Signs
Temp Pulse Resp BP Pulse Ox
36.6 C 86 18 142/99 99
11/23/24 16:39 11/23/24 16:39 11/23/24 16:39 11/23/24 16:39 11/23/24 16:39
Lab Results
11/23/24 06:05
11/23/24 06:04
Sodium 138 mmol/L (135-145) 11/23/24 06:04
Potassium 3.6 mmol/L (3.5-5.1) 11/23/24 06:04
BUN 25 mg/dl (7-17) H 11/23/24 06:04
Glucose 96 mg/dl (70-99) 11/23/24 06:04
Calcium 9.1 mg/dl (8.4-10.2) 11/23/24 06:04
Ur Buprenorphine Negative (Negative) 11/23/24 03:29
Patient Allergies
codeine Allergy (Verified 11/22/24 20:02)
Itching
Physical Exam
-
VFF, EOMI, face symmetric
grossly full strength
significant loss of pin/vib in b/l LE, hands
Medications
-
Active Medications
Generic Name Dose Route Start Last Admin
Trade Name Freq PRN Reason Stop Dose Admin
Acetaminophen 650 mg 11/23/24 11:52 11/23/24 13:32
Acetaminophen 325 Mg Tablet PO 12/21/24 11:51 650 mg
Q4HPRN PRN Administration
mild pain
Aspirin 81 mg 11/23/24 18:00
Aspirin 81 Mg (Enteric Coated) Tablet PO 12/21/24 17:59
QPM ANGIE
Atenolol 12.5 mg 11/23/24 18:00
Atenolol 25 Mg Tablet PO 12/21/24 17:59
QPM ANGIE
Atorvastatin Calcium 10 mg 11/23/24 18:00
Atorvastatin (Lipitor) 10 Mg Tablet PO 12/21/24 17:59
QPM ANGIE
Ceftriaxone Sodium 1,000 mg 11/23/24 12:00 11/23/24 11:30
Ceftriaxone 1000 Mg / 10 Ml Vial IV 1,000 mg
Q24H ANGIE Administration
Cholecalciferol 50 mcg 11/23/24 14:15 11/23/24 15:22
Cholecalciferol (Vitamin D3) 50 Mcg Tablet (2,000 Units) PO 12/21/24 14:14 50 mcg
DAILY ANGIE Administration
Clonazepam 1 mg 11/23/24 15:00 11/23/24 15:22
Clonazepam 1 Mg Tablet PO 12/21/24 14:59 1 mg
DAILY ANGIE Administration
Clonazepam 2 mg 11/23/24 18:00
Clonazepam 1 Mg Tablet PO 12/21/24 17:59
QPM ANGIE
Dextrose 12.5 grams 11/23/24 00:47
Dextrose 50% (0.5 Grams/Ml) 50 Ml Syringe IV 12/21/24 00:46
[id number] PRN
hypoglycemia
Protocol
Famotidine 10 mg 11/24/24 08:00
Famotidine 20 Mg Tablet PO 12/22/24 07:59
DAILY ANGIE
Fludrocortisone Acetate 0.1 mg 11/23/24 08:00 11/23/24 09:39
Fludrocortisone Acetate 0.1 Mg Tablet PO 12/21/24 07:59 0.1 mg
DAILY ANGIE Administration
Glucagon 1 mg 11/23/24 00:47
Glucagon 1 Mg Vial IM 12/21/24 00:46
PRN PRN
hypoglycemia
Protocol
Heparin Sodium 5,000 units 11/23/24 00:47 11/23/24 15:22
Heparin 5,000 Units/Ml 1 Ml Vial SC 12/21/24 00:46 5,000 units
On Hold: 11/23/24 15:30 Q8 ANGIE Administration
Sodium Chloride 1,000 mls @ 80 mls/hr 11/23/24 00:47 11/23/24 15:21
Nss IV 1,000 mls
[id number] ANGIE Administration
Insulin Glargine 11 units/ 0.11 mls @ 0 mls/hr 11/23/24 08:00 11/23/24 11:55
Device SC 12/21/24 07:59 Not Given
On Hold: 11/23/24 11:48 DAILY ANGIE
As Directed
Insulin Aspart 0 units 11/23/24 07:30 11/23/24 11:44
Insulin Aspart Low Resistance 300 Units/3 Ml Pen.Injctr SC 12/21/24 07:29 Not Given
AC ANGIE
Protocol
Levothyroxine Sodium 50 mcg 11/23/24 06:00 11/23/24 05:09
Levothyroxine 50 Mcg Tablet PO 12/21/24 05:59 50 mcg
DAILY @ 0600 ANGIE Administration
Pancrelipase 2 capsule 11/23/24 07:30 11/23/24 11:30
Pancrelipase (Zenpep) Delayed Release Capsule PO 12/21/24 07:29 2 capsule
AC ANGIE Administration
Polyethylene Glycol 17 grams 11/23/24 16:00 11/23/24 15:31
Polyethylene Glycol Powder 17 Grams Packet PO 12/21/24 15:59 17 grams
DAILY ANGIE Administration
Prednisone 5 mg 11/23/24 08:00 11/23/24 09:39
Prednisone 5 Mg Tablet PO 12/21/24 07:59 5 mg
DAILY ANGIE Administration
Sennosides 8.6 mg 11/23/24 15:20 11/23/24 15:31
Sennosides (Senokot) 8.6 Mg Tablet PO 12/21/24 15:19 8.6 mg
BID ANGIE Administration
Sodium Chloride 0 flush 11/23/24 01:00
Sodium Chloride 0.9% (Flush) Syringe IV 12/21/24 00:59
PER PROTOCOL ANGIE
Sterile Water 10 ml 11/23/24 12:00 11/23/24 11:31
Sterile Water For Injection 10 Ml Vial IV 12/21/24 11:59 10 ml
Q24H ANGIE Administration
Tacrolimus 1.5 mg 11/23/24 00:47 11/23/24 11:29
Tacrolimus 0.5 Mg Capsule PO 12/21/24 00:46 1.5 mg
Q12@1000,2200 ANGIE Administration
Trazodone HCl 300 mg 11/23/24 18:00
Trazodone 150 Mg Tablet PO 12/21/24 17:59
QPM ANGIE
Vitamin B Complex/Vitamin C 1 caplet 11/23/24 15:00 11/23/24 15:22
Vitamin B Complex With Vitamin C Caplet PO 12/21/24 14:59 1 caplet
DAILY ANGIE Administration
Home Medications
�Medication �Instructions �Recorded
aspirin 81 mg tablet,delayed 81 mg PO QPM 03/22/24
release
atenolol 25 mg tablet 12.5 mg PO QPM 03/22/24
atorvastatin 10 mg tablet 10 mg PO QPM 03/22/24
cholecalciferol (vitamin D3) 50 50 mcg PO DAILY 03/22/24
mcg (2,000 unit) tablet
clonazepam 2 mg tablet 1 mg PO DAILY 03/22/24
clonazepam 2 mg tablet 2 mg PO QPM 03/22/24
famotidine 40 mg tablet 40 mg PO QPM 03/22/24
fludrocortisone 0.1 mg tablet 0.1 mg PO DAILY 03/22/24
insulin aspart U-100 100 unit/mL 1 sliding scale dose SC MEALS 03/22/24
(3 mL) subcutaneous pen (Novolog
FlexPen U-100 Insulin aspart)
insulin degludec 100 unit/mL (3 11 unit SC DAILY 03/22/24
mL) subcutaneous pen (Tresiba
FlexTouch U-100 insulin)
prednisone 5 mg tablet 5 mg PO DAILY 03/22/24
tacrolimus 0.5 mg capsule, 1.5 mg PO Q12H 03/22/24
immediate-release
trazodone 150 mg tablet 300 mg PO QPM 03/22/24
vitamin B complex-vitamin C 100 1 tab PO DAILY 03/22/24
mg-folic acid 1 mg tablet
(Dialyvite)
diphenhydramine HCl 50 mg capsule 100 mg PO HS 11/22/24
levothyroxine 50 mcg tablet 50 mcg PO DAILY 11/22/24
sskezx-vyzraclv-uwqiaxc 1 cap PO AC 11/22/24
24,000-76,000-120,000 unit
capsule,delayed rel (Creon)
[2024-11-23] MEDS: NOVOLOG FLEXPEN-LOW RESISTANCE 3 UNITS SC (17:40)
[2024-11-23] MEDS: DESYREL 300 MG PO (17:45)
[2024-11-23] MEDS: KLONOPIN 2 MG PO (17:47)
[2024-11-23] MEDS: LIPITOR 10 MG PO (17:49)
[2024-11-23] MEDS: ASPIR LOW (ENTERIC COATED) 81 MG PO (17:49)
[2024-11-23] MEDS: TENORMIN 12.5 MG PO (17:50)
[2024-11-23 23:06] LABS: Glucose - Point of Care 205 mg/dl (70-99)
[2024-11-23 23:30] VITALS: BP 154/94
[2024-11-24 00:38] VITALS: BP 154/94
[2024-11-24] MEDS: NSS 1000 IV (03:10)
[2024-11-24] MEDS: SYNTHROID 50 MCG PO (05:55)
[2024-11-24 07:05] LABS: Blood Urea Nitrogen 23 mg/dl (7-17); Calcium 8.8 mg/dl (8.4-10.2); Carbon Dioxide 25 mmol/L (22-30); Chloride 109 mmol/L (98-107); Estimated Creatinine Clearance 19 ml/min; Glucose 192 mg/dl (70-99); Potassium 4.2 mmol/L (3.5-5.1); Sodium 138 mmol/L (135-145); eGFR 17.55
[2024-11-24 07:13] LABS: Hematocrit 29.6 % (37.0-47.0); Hemoglobin 10.4 g/dL (12.0-16.0); Mean Corp Hgb Conc. 35.1 g/dL (33.0-37.0); Mean Corpuscular Volume 89.4 fL (81.0-99.0); Nucleated Red Blood Cells % 0 %; Red Cell Dist. Width 11.9 % (11.5-14.5)
[2024-11-24 07:28] LABS: Glucose - Point of Care 207 mg/dl (70-99)
[2024-11-24] MEDS: PEPCID 10 MG PO (07:56)
[2024-11-24] MEDS: FLORINEF 0.1 MG PO (07:56)
[2024-11-24] MEDS: B COMPLEX w/VITAMIN C 1 CAPLET PO (07:56)
[2024-11-24] MEDS: KLONOPIN 1 MG PO (07:56)
[2024-11-24] MEDS: ZENPEP DELAYED RELEASE CAPSULE 2 CAPSULE PO ×3 (07:56→16:21)
[2024-11-24] MEDS: VITAMIN D3 (cholecalciferol) 50 MCG PO (07:56)
[2024-11-24] MEDS: DELTASONE 5 MG PO (07:56)
[2024-11-24] MEDS: SENOKOT 8.6 MG PO ×2 (07:56→20:23)
[2024-11-24] MEDS: HEPARIN 5000 UNITS SC (07:58)
[2024-11-24] MEDS: NOVOLOG FLEXPEN-LOW RESISTANCE 2 UNITS SC (07:58)
[2024-11-24] MEDS: MIRALAX 17 GRAMS PO (07:58)
[2024-11-24 08:24] VITALS: BP 151/85
[2024-11-24] MEDS: LANTUS 0.11 UNITS SC (08:27)
[2024-11-24] MEDS: PROGRAF 1.5 MG PO ×2 (09:38→20:23)
--- NOTE | 2024-11-24 10:45 | W.PN.HOSP.TC ---
Today's Communication/Plan
-
Plan for LP in a.m.
Assessment / Plan
Assessment / Plan
Physical exam:
General: Acutely ill
HEENT: Normocephalic, Atraumatic and Moist Mucous Membranes
Respiratory: Clear to Auscultation; Negative Wheezes, Rales or Rhonchi
Cardiac: Regular Rhythm and S1/S2
GI: Soft, Nontender and Nondistended
Musculoskeletal: No Clubbing, No Cyanosis and No Edema. Old AV fistula left upper extremity.
Neuro: Alert and oriented, no neurological deficits, mild cognitive deficit.
Psych: Improved judgment and insight.
A/P:
Acute confusional state and headache:
Suspected normal pressure hydrocephalus related
Encephalitis not completely ruled out although seems less likely-further w/u if required
Neurology consult appreciated who spoke with IR
Plan for large-volume LP in a.m. followed by PT and further infectious workup if needed
Seen MRI of the brain
PT and speech eval
Discussed with boyfriend at bedside
Discussed with mother prior
Nausea vomiting constipation:
Likely related to Ozempic
Bowel regimen and supportive care
Tolerating diabetic diet
Abnormal UA (ruled out UTI):
Urine culture no growth
Discontinue antibiotics
Benzodiazepine dependence:
Restarted home clonazepam (1 mg in the morning and 2 mg in the evening) and no issue so far
Chronic kidney disease stage IV:
Status post IV fluid
Creatinine 3.7--> 3.1 which appears to be close to her baseline
Nephrology consult appreciated
History of renal and pancreatic transplant (living donor kidney with second transplant and pancreatic transplant in her 20s after failed first transplant of disease donor kidney):
Continue immunosuppression with tacrolimus and prednisone. Prednisone 5 mg p.o. daily, tacrolimus 1.5 mg twice daily.
Checking tacrolimus level
No evidence of PML
Nephrology recommend hold fludrocortisone
Diabetes mellitus type 1:
On Tresiba and NovoLog as outpatient. Continue Lantus 11 units daily and insulin sliding scale.
Continue pancreatic enzymes
Hypothyroidism:
Continue thyroid replacement, levothyroxine 50 mcg p.o. daily
Depression anxiety:
Continue trazodone 300 mg p.o. daily and benzodiazepine
Also on Benadryl at bedtime but holding that for now.
Hypertension:
On atenolol 12.5 mg daily in the evening
Hyperlipidemia:
On atorvastatin 10 mg p.o. daily in the evening
GERD:
On Pepcid at home on 40 mg p.o. daily in the evening but renally adjusted to 10 mg p.o. due to renal clearance.
DVT prophylaxis:
Heparin SQ--> will place on hold due to upcoming LP and can restart afterwards.
CODE STATUS:
Full code
Total time spent on today's encounter was 52 minutes which included time spent in counseling the patient/family regarding diagnosis and treatment plan as listed above, goals of care, and symptom management. Case was discussed with nursing staff,
specialists, and care coordinators/case management. All labs and imaging personally reviewed by me. Remainder the time spent in detailed review of previous records, lab data, imaging, and other medical provider documentation.
Anticipated Discharge: > 48 hours
Subjective/Interval History
-
Date of Service: November 24, 2024
Patient remains alert today and less confusion. No delusional ideas. Headache still on and off but improved. Afebrile
Objective Data
-
Labs:
Laboratory Results
11/24/24
06:23
WBC 3.6 L
Hgb 10.4 L
Hct 29.6 L
Plt Count
Sodium 138
Potassium 4.2
Chloride 109 H
Carbon Dioxide 25
BUN 23 H
Creatinine 3.1 H
Glucose 192 H
Calcium 8.8
Vital Signs:
Vital Signs
Temp Pulse Resp BP Pulse Ox
97.6 F 79 18 151/85 97
11/24/24 08:24 11/24/24 08:24 11/24/24 08:24 11/24/24 08:24 11/24/24 08:24
I&O
11/23/24 11/24/24 11/25/24
06:59 06:59 06:59
Intake Total 340 / 340 3120 / 3120
Balance 340 / 340 3120 / 3120
[2024-11-24] MEDS: TYLENOL 650 MG PO (11:00)
[2024-11-24 12:00] LABS: Glucose - Point of Care 222 mg/dl (70-99)
--- NOTE | 2024-11-24 12:16 | W.PN.NEPH.PH ---
Today's Communication / Plan
-
Follow BMP
Assessment/Plan
-
Impression
hydrocephalus
Confusion, falls (no incontinence)
Living unrelated renal transplant, failed donor transplant
Chronic kidney disease stage 4
Type I diabetes mellitus
Pancreatic insufficiency, pancreatic transplant in her 20s
Chronic immunosuppression with tacrolimus prednisone only
hypertension
Acquired hypothyroidism
GERD
Anxiety/Depression
Hyperlipidemia
Plan
Follow BMP, creatinine appears to be at baseline at this time
Check tacrolimus level, continue tacrolimus and prednisone, stress dose steroids not required
For lumbar puncture to examine for infectious causes as well as for NPH
No evidence to support PML given recent CT scan
IV fluids
Hold fludrocortisone given hypertension currently
-
-
Date of Service: November 24, 2024
CC / HPI / ROS
-
Chief Complaint:
Renal transplant
History of Present Illness:
WBC low but stable 3.6
Hemoglobin stable 10.4
BP stable high
Creatinine stable 3.1
Review of Systems:
No chest pain or shortness of breath
no weakness
Fully oriented no confusion
Labs
-
Labs:
WBC 3.6 10^3/uL (4.8-10.8) L 11/24/24 06:23
RBC 3.31 10^6/uL (4.20-5.40) L 11/24/24 06:23
Hgb 10.4 g/dL (12.0-16.0) L 11/24/24 06:23
Hct 29.6 % (37.0-47.0) L 11/24/24 06:23
Plt Count 10^3/uL (130-400) 11/24/24 06:23
Sodium 138 mmol/L (135-145) 11/24/24 06:23
Potassium 4.2 mmol/L (3.5-5.1) 11/24/24 06:23
Chloride 109 mmol/L (98-107) H 11/24/24 06:23
Carbon Dioxide 25 mmol/L (22-30) 11/24/24 06:23
BUN 23 mg/dl (7-17) H 11/24/24 06:23
Creatinine 3.1 mg/dL (0.6-1.0) H 11/24/24 06:23
eGFR 17.55 11/24/24 06:23
Glucose 192 mg/dl (70-99) H 11/24/24 06:23
Calcium 8.8 mg/dl (8.4-10.2) 11/24/24 06:23
Albumin 4.2 g/dl (3.5-5.0) 11/22/24 21:30
Physical Exam
-
Vital Signs:
Vital Signs
Temp Pulse Resp BP Pulse Ox
97.6 F 79 18 151/85 97
11/24/24 08:24 11/24/24 08:24 11/24/24 08:24 11/24/24 08:24 11/24/24 08:24
Cardiovascular:: Regular rate and rhythm
Respiratory:: Bilateral: Coarse
Lung Excursion:: Normal
Abdomen:: Nontender and Soft
Bowel Sounds:: Normal
Extremity Edema:: None: Bilateral:
[2024-11-24] MEDS: MILK OF MAGNESIA 30 ML PO (12:24)
[2024-11-24] MEDS: TYLENOL 1000 MG PO (12:24)
[2024-11-24] MEDS: STERILE WATER FOR INJECTION 10 ML IV (12:25)
[2024-11-24] MEDS: ROCEPHIN 1000 MG IV (12:25)
[2024-11-24] MEDS: NOVOLOG FLEXPEN-LOW RESISTANCE SC (12:25)
[2024-11-24 15:00] VITALS: BP 137/84
[2024-11-24 15:54] LABS: Glucose - Point of Care 309 mg/dl (70-99)
[2024-11-24] MEDS: NOVOLOG FLEXPEN-LOW RESISTANCE 4 UNITS SC (16:20)
[2024-11-24] MEDS: ROXICODONE 5 MG PO ×2 (16:44→20:23)
[2024-11-24] MEDS: TENORMIN 12.5 MG PO (17:29)
[2024-11-24] MEDS: DESYREL 300 MG PO (17:29)
[2024-11-24] MEDS: LIPITOR 10 MG PO (17:29)
[2024-11-24] MEDS: KLONOPIN 2 MG PO (17:29)
[2024-11-24 20:22] VITALS: BP 141/92
[2024-11-24 21:28] LABS: Glucose - Point of Care 220 mg/dl (70-99)
[2024-11-25] VITALS (7 sets, daily range): BP systolic 78–159; BP diastolic 82–95; PULSE 78–89; O2SAT 99
[2024-11-25] MEDS: SYNTHROID 50 MCG PO (06:01)
[2024-11-25 07:52] LABS: Glucose - Point of Care 212 mg/dl (70-99)
[2024-11-25 08:29] LABS: Hematocrit 29.0 % (37.0-47.0); Hemoglobin 9.9 g/dL (12.0-16.0); Mean Corp Hgb Conc. 34.1 g/dL (33.0-37.0); Mean Corpuscular Volume 90.9 fL (81.0-99.0); Platelet Count 135 10^3/uL (130-400); Red Cell Dist. Width 11.8 % (11.5-14.5)
[2024-11-25] MEDS: NOVOLOG FLEXPEN-LOW RESISTANCE 2 UNITS SC ×2 (08:50→18:40)
[2024-11-25] MEDS: ROXICODONE 5 MG PO ×3 (08:50→20:35)
[2024-11-25] MEDS: LANTUS 0.11 UNITS SC (08:51)
[2024-11-25] MEDS: MIRALAX PO (08:52)
[2024-11-25] MEDS: VITAMIN D3 (cholecalciferol) 50 MCG PO (08:56)
[2024-11-25] MEDS: KLONOPIN 1 MG PO (08:56)
[2024-11-25] MEDS: DELTASONE 5 MG PO (08:56)
[2024-11-25] MEDS: ZENPEP DELAYED RELEASE CAPSULE 2 CAPSULE PO ×2 (08:56→18:41)
[2024-11-25] MEDS: SENOKOT 8.6 MG PO ×2 (08:56→20:30)
[2024-11-25] MEDS: B COMPLEX w/VITAMIN C 1 CAPLET PO (08:56)
[2024-11-25] MEDS: PEPCID 10 MG PO (08:57)
[2024-11-25 10:00] LABS: Blood Urea Nitrogen 23 mg/dl (7-17); Calcium 9.2 mg/dl (8.4-10.2); Carbon Dioxide 24 mmol/L (22-30); Chloride 107 mmol/L (98-107); Estimated Creatinine Clearance 19 ml/min; Glucose 206 mg/dl (70-99); Potassium 3.7 mmol/L (3.5-5.1); Sodium 135 mmol/L (135-145); eGFR 17.55
[2024-11-25] MEDS: PROGRAF 1.5 MG PO ×2 (10:43→21:17)
--- NOTE | 2024-11-25 10:48 | W.PN.NEURO.1 ---
Today's Communication / Plan
-
LP planned
PT and [employer] eval afterwards, no need to supine 2 hrs after procedure
Neuro Assessment/Plan
Assessment
head CT imgs rev'd
MRI brain w/o contrast imgs rev'd
Tinetti 19, MOCA [address] and MRI imgs rev'd, ventricular dilation consistent with NPH
LP planned
PT and [employer] eval afterwards, no need to supine 2 hrs after procedure
Will follow pending results
Subjective/Objective
Subjective Data
Date of Service: November 25, 2024
Continued symptoms
Objective Data
Vital Signs
Temp Pulse Resp BP Pulse Ox
36.3 C 77 14 146/91 99
11/25/24 07:00 11/25/24 07:00 11/25/24 07:00 11/25/24 07:00 11/25/24 07:00
Lab Results
11/25/24 07:25
11/25/24 07:25
Sodium 135 mmol/L (135-145) 11/25/24 07:25
Potassium 3.7 mmol/L (3.5-5.1) 11/25/24 07:25
BUN 23 mg/dl (7-17) H 11/25/24 07:25
Glucose 206 mg/dl (70-99) H 11/25/24 07:25
Calcium 9.2 mg/dl (8.4-10.2) 11/25/24 07:25
Ur Buprenorphine Negative (Negative) 11/23/24 03:29
Patient Allergies
codeine Allergy (Verified 11/22/24 20:02)
Itching
Review of Systems
-
History Source: Patient and Family
All other systems: Reviewed and negative
Constitutional: Weakness
Musculoskeletal: Back Pain and Neck Pain
Neuro: Dizzy, Headache (temples), Tremors and Speech Problem
Physical Exam
-
General: No Apparent Distress and Appears Stated Age
Eyes: Round OU, [place] Conjunctivae and No Ptosis
HEENT: Anicteric and Moist Mucous Membranes
Neck: Full Range of Motion
Respiratory: No Dyspnea
Cardiac: No JVD
GI: Non-distended
Skin: Unremarkable
Extremities: No Clubbing, No Cyanosis and No Edema
Psych: Intact Judgement/Insight
Extended Neurological Exam
Mood & Affect: Mood Unremarkable and Affect Unremarkable
Attention Span & Concentration: Awake, Alert, Interactive and No Difficulty with 2 Step Request
Memory: Unremarkable
Tremor: Hand Tremor Absent and Head Tremor Absent
Speech: Quality Unremarkable and Quantity Unremarkable
Cranial Nerve II: Left Eye: Pupillary Size Unremarkable and Visual [place] Grossly Intact
Cranial Nerve II: Right Eye: Pupillary Size Unremarkable and Visual [place] Grossly Intact
Cranial Nerves III, IV, : Extraocular Movement: Extraocular Movement Full in all Directions
Cranial Nerve VII: Facial Symmetry: Normal Facial Symmetry
Cranial Nerve VIII: Hearing: Unremarkable Hearing to Normal Conversational Volume
Cranial Nerve XI: Shoulder Shrug: Unremarkable
Muscle Strength, Overall: Full in Upper Extremities
Muscle Bulk & Tone: Bulk Unremarkable and Tone Unremarkable
Pronator Drift: No Drift in Upper Extremities
Coordination: [id number] Testing Unremarkable
Past History
Past History
ED Past Medical History: Other (Insulin-dependent diabetes)
ED Past Surgical History: Other (Kidney and pancreas transplant)
Social History
Tobacco: Non-smoker
Alcohol: Occasional
Drug: None
Medications
-
Medications:
Generic Name Dose Route Start Last Admin
Trade Name Freq PRN Reason Stop Dose Admin
Acetaminophen 1,000 mg 11/24/24 12:06 11/24/24 12:24
Acetaminophen 500 Mg Tablet PO 12/22/24 12:05 1,000 mg
Q8HPRN PRN Administration
pain
Aspirin 81 mg 11/23/24 18:00 11/23/24 17:49
Aspirin 81 Mg (Enteric Coated) Tablet PO 12/21/24 17:59 81 mg
On Hold: 11/24/24 08:01 QPM ANGIE Administration
Atenolol 12.5 mg 11/23/24 18:00 11/24/24 17:29
Atenolol 25 Mg Tablet PO 12/21/24 17:59 12.5 mg
QPM ANGIE Administration
Atorvastatin Calcium 10 mg 11/23/24 18:00 11/24/24 17:29
Atorvastatin (Lipitor) 10 Mg Tablet PO 12/21/24 17:59 10 mg
QPM ANGIE Administration
Cholecalciferol 50 mcg 11/23/24 14:15 11/25/24 08:56
Cholecalciferol (Vitamin D3) 50 Mcg Tablet (2,000 Units) PO 12/21/24 14:14 50 mcg
DAILY ANGIE Administration
Clonazepam 1 mg 11/23/24 15:00 11/25/24 08:56
Clonazepam 1 Mg Tablet PO 12/21/24 14:59 1 mg
DAILY ANGIE Administration
Clonazepam 2 mg 11/23/24 18:00 11/24/24 17:29
Clonazepam 1 Mg Tablet PO 12/21/24 17:59 2 mg
QPM ANGIE Administration
Dextrose 12.5 grams 11/23/24 00:47
Dextrose 50% (0.5 Grams/Ml) 50 Ml Syringe IV 12/21/24 00:46
[id number] PRN
hypoglycemia
Protocol
Famotidine 10 mg 11/24/24 08:00 11/25/24 08:57
Famotidine 20 Mg Tablet PO 12/22/24 07:59 10 mg
DAILY ANGIE Administration
Fludrocortisone Acetate 0.1 mg 11/23/24 08:00 11/24/24 07:56
Fludrocortisone Acetate 0.1 Mg Tablet PO 12/21/24 07:59 0.1 mg
On Hold: 11/24/24 12:19 DAILY ANGIE Administration
Glucagon 1 mg 11/23/24 00:47
Glucagon 1 Mg Vial IM 12/21/24 00:46
PRN PRN
hypoglycemia
Protocol
Heparin Sodium 5,000 units 11/23/24 00:47 11/24/24 07:58
Heparin 5,000 Units/Ml 1 Ml Vial SC 12/21/24 00:46 5,000 units
On Hold: 11/24/24 08:01 Q8 ANGIE Administration
Insulin Glargine 11 units/ 0.11 mls @ 0 mls/hr 11/23/24 08:00 11/25/24 08:51
Device SC 12/21/24 07:59 0.11 mls
DAILY ANGIE Administration
As Directed
Insulin Aspart 0 units 11/23/24 07:30 11/25/24 08:50
Insulin Aspart Low Resistance 300 Units/3 Ml Pen.Injctr SC 12/21/24 07:29 2 units
AC ANGIE Administration
Protocol
Levothyroxine Sodium 50 mcg 11/23/24 06:00 11/25/24 06:01
Levothyroxine 50 Mcg Tablet PO 12/21/24 05:59 50 mcg
DAILY @ 0600 ANGIE Administration
Ondansetron HCl 4 mg 11/24/24 14:08
Ondansetron 4 Mg/2 Ml Vial IV 12/22/24 14:07
Q6HPRN PRN
NAUSEA/VOMITING
Oxycodone HCl 5 mg 11/25/24 08:24 11/25/24 08:50
Oxycodone 5 Mg Regular Release Tablet PO 12/09/24 08:23 5 mg
Q4HPRN PRN Administration
mod sev pain
Pancrelipase 2 capsule 11/23/24 07:30 11/25/24 08:56
Pancrelipase (Zenpep) Delayed Release Capsule PO 12/21/24 07:29 2 capsule
AC ANGIE Administration
Polyethylene Glycol 17 grams 11/23/24 16:00 11/25/24 08:52
Polyethylene Glycol Powder 17 Grams Packet PO 12/21/24 15:59 Not Given
DAILY ANGIE
Prednisone 5 mg 11/23/24 08:00 11/25/24 08:56
Prednisone 5 Mg Tablet PO 12/21/24 07:59 5 mg
DAILY ANGIE Administration
Sennosides 8.6 mg 11/23/24 15:20 11/25/24 08:56
Sennosides (Senokot) 8.6 Mg Tablet PO 12/21/24 15:19 8.6 mg
BID ANGIE Administration
Sodium Chloride 0 flush 11/23/24 01:00
Sodium Chloride 0.9% (Flush) Syringe IV 12/21/24 00:59
PER PROTOCOL ANGIE
Tacrolimus 1.5 mg 11/23/24 00:47 11/25/24 10:43
Tacrolimus 0.5 Mg Capsule PO 12/21/24 00:46 1.5 mg
Q12@1000,2200 ANGIE Administration
Trazodone HCl 300 mg 11/23/24 18:00 11/24/24 17:29
Trazodone 150 Mg Tablet PO 12/21/24 17:59 300 mg
QPM ANGIE Administration
Vitamin B Complex/Vitamin C 1 caplet 11/23/24 15:00 11/25/24 08:56
Vitamin B Complex With Vitamin C Caplet PO 12/21/24 14:59 1 caplet
DAILY ANGIE Administration
[2024-11-25 11:32] LABS: Glucose - Point of Care 167 mg/dl (70-99)
[2024-11-25] MEDS: ZENPEP DELAYED RELEASE CAPSULE PO (13:07)
[2024-11-25] MEDS: NOVOLOG FLEXPEN-LOW RESISTANCE 1 UNITS SC (13:09)
[2024-11-25] MEDS: VITAMIN B1 100 MG PO (13:22)
[2024-11-25 13:41] LABS: Ferritin 126.0 ng/ml (11.1-264.0)
[2024-11-25 14:05] LABS: INR 0.99; PT 13.4 Sec (11.4-14.6)
[2024-11-25 14:12] LABS: Folate 5.8 ng/ml (2.76-20); Vitamin B12 893 pg/ml (239-931)
[2024-11-25] MEDS: ATIVAN 1 MG PO (14:25)
--- NOTE | 2024-11-25 15:44 | CM ---
CM reviewed chart, reviewed with Hospitalist, for Lumbar Puncture today. CM will continue to follow for all discharge planning needs.
Plan; home with [facility]
[2024-11-25 16:17] LABS: CSF Color Colorless
[2024-11-25 16:19] LABS: Red Cell Count/CSF 2 mm^3; White Cell Count/CSF 3 mm^3 (0-5)
[2024-11-25 16:24] LABS: Glucose - Point of Care 216 mg/dl (70-99)
--- NOTE | 2024-11-25 16:24 | W.PN.HOSP.TC ---
Today's Communication/Plan
-
f/u response to large volume LP
continue other meds
Assessment / Plan
Assessment / Plan
1. Acute encephalopathy
-Associated with some balance issue and headache, question of possible NPH versus other metabolic reasons
-Tacrolimus level check pending
-Clinically low concern of PML
-Patient undergoing large-volume LP to rule out NPH
-CSF studies to r/o any infectious etiology as well
-Benzodiazepine dependence and should be weaned off slowly if possible.
-Patient also requesting oxycodone for headache. will need to cut back once appropriate
2. Nausea/vomiting
-Possible Ozempic use relate
-increased ICP can also add to issue
-improved currently and maintained on symptomatic care
3. Benzodiazepine dependence:
Restarted home clonazepam (1 mg in the morning and 2 mg in the evening) and no issue so far
4. Chronic kidney disease stage IV
-Creatinine trending down
-Renal function close to baseline
-Nephrology following and help appreciated
5. History of renal and pancreatic transplant
-living donor kidney with second transplant and pancreatic transplant in her 20s after failed first transplant of disease donor kidney
-Continue immunosuppression with tacrolimus and prednisone. Prednisone 5 mg p.o. daily, tacrolimus 1.5 mg twice daily.
-Checking tacrolimus level
-Nephrology recommend hold fludrocortisone
6. Diabetes mellitus type 1:
- On Tresiba and NovoLog as outpatient. Continue Lantus 11 units daily and insulin sliding scale.
- Continue pancreatic enzymes
7. Hypothyroidism:
Continue thyroid replacement, levothyroxine 50 mcg p.o. daily
8. Depression/anxiety:
- Continue trazodone 300 mg p.o. daily and benzodiazepine
- Also on Benadryl at bedtime but holding that for now.
Essential Hypertension: atenolol 12.5 mg daily in the evening
Hyperlipidemia: On atorvastatin 10 mg p.o. daily in the evening
GERD: On Pepcid at home on 40 mg p.o. daily in the evening but renally adjusted to 10 mg p.o. due to renal clearance.
DVT prophylaxis: Heparin SQ
CODE STATUS: Full code
Total time spent : 55mins
Anticipated Discharge: 24 - 48 hours
Subjective/Interval History
-
Date of Service: November 25, 2024
patient is slow to answer questions
ongoing headache, some nausea
Objective Data
-
Labs:
Laboratory Results
11/25/24 11/25/24
07: 13:50
WBC 3.3 L
Hgb 9.9 L
Hct 29.0 L
Plt Count 135
PT 13.4
INR 0.99
Sodium 135
Potassium 3.7
Chloride 107
Carbon Dioxide 24
BUN 23 H
Creatinine 3.1 H
Glucose 206 H
Calcium 9.2
Vital Signs:
Vital Signs
Temp Pulse Resp BP Pulse Ox
97.3 F 83 14 153/95 99
11/25/24 16:08 11/25/24 16:08 11/25/24 16:08 11/25/24 16:08 11/25/24 16:08
I&O
11/24/24 11/25/24 11/26/24
06:59 06:59 06:59
Intake Total 3120 / 3120 960 / 960
Balance 3120 / 3120 960 / 960
Review of Systems
-
Respiratory: Reports No Symptoms
Cardiac: Reports No Symptoms
Abdomen/GI: Reports Nausea
Physical Exam
-
General: No Apparent Distress and Comfortable
HEENT: Negative Oxygen
Respiratory: Clear to Auscultation
Cardiac: Regular Rhythm and S1/S2; Negative Murmur or Rub
GI: Soft and Nontender
Musculoskeletal: No Edema
Neuro: Awake, Alert, Oriented, No Motor Deficits and Nonfocal/Grossly Intact
Psych: Calm
--- NOTE | 2024-11-25 16:54 | W.PN.NEPH.PH ---
Today's Communication / Plan
-
follow labs
Assessment/Plan
-
Impression
hydrocephalus
Confusion, falls (no incontinence)
Living unrelated renal transplant, failed donor transplant
Chronic kidney disease stage 4
Type I diabetes mellitus
Pancreatic insufficiency, pancreatic transplant in her 20s
Chronic immunosuppression with tacrolimus prednisone only
hypertension
Acquired hypothyroidism
GERD
Anxiety/Depression
Hyperlipidemia
Plan
Follow BMP, creatinine appears to be at baseline at this time
tacrolimus level 4.3 acceptable, continue tacrolimus and prednisone, stress dose steroids not required
s/p LP today , WBC only 3 no inf source
No evidence to support PML given recent CT scan, concern of NPH
Hold fludrocortisone given hypertension currently
follow labs
d/w pt
-
-
Date of Service: November 25, 2024
CC / HPI / ROS
-
Chief Complaint:
Renal transplant
History of Present Illness:
WBC low but stable 3.3
Hemoglobin slightly low 9.9
BP stable high
Creatinine stable 3.1
Review of Systems:
No chest pain or shortness of breath
no weakness
Fully oriented no confusion
no n/v
Labs
-
Labs:
WBC 3.3 10^3/uL (4.8-10.8) L 11/25/24 07:25
RBC 3.19 10^6/uL (4.20-5.40) L 11/25/24 07:25
Hgb 9.9 g/dL (12.0-16.0) L 11/25/24 07:25
Hct 29.0 % (37.0-47.0) L 11/25/24 07:25
Plt Count 135 10^3/uL (130-400) 11/25/24 07:25
Sodium 135 mmol/L (135-145) 11/25/24 07:25
Potassium 3.7 mmol/L (3.5-5.1) 11/25/24 07:25
Chloride 107 mmol/L (98-107) 11/25/24 07:25
Carbon Dioxide 24 mmol/L (22-30) 11/25/24 07:25
BUN 23 mg/dl (7-17) H 11/25/24 07:25
Creatinine 3.1 mg/dL (0.6-1.0) H 11/25/24 07:25
eGFR 17.55 11/25/24 07:25
Glucose 206 mg/dl (70-99) H 11/25/24 07:25
Calcium 9.2 mg/dl (8.4-10.2) 11/25/24 07:25
Albumin 4.2 g/dl (3.5-5.0) 11/22/24 21:30
Physical Exam
-
Vital Signs:
Vital Signs
Temp Pulse Resp BP Pulse Ox
97.3 F 83 14 153/95 99
11/25/24 16:08 11/25/24 16:08 11/25/24 16:08 11/25/24 16:08 11/25/24 16:08
Cardiovascular:: Regular rate and rhythm
Respiratory:: Bilateral: CTA (decreased)
Lung Excursion:: Normal
Abdomen:: Nontender and Soft
Bowel Sounds:: Normal
Extremity Edema:: None: Bilateral:
Smith Catheter: No
[2024-11-25] MEDS: DESYREL 300 MG PO (18:41)
[2024-11-25] MEDS: KLONOPIN 2 MG PO (18:42)
[2024-11-25] MEDS: LIPITOR 10 MG PO (18:43)
[2024-11-25] MEDS: TENORMIN 12.5 MG PO (18:43)
[2024-11-25 21:31] LABS: Glucose - Point of Care 232 mg/dl (70-99)
[2024-11-25] MEDS: TYLENOL 1000 MG PO (22:47)
[2024-11-26] MEDS: SYNTHROID 50 MCG PO (05:21)
[2024-11-26 07:17] VITALS: BP 142/90
[2024-11-26 08:30] LABS: Hematocrit 31.1 % (37.0-47.0); Hemoglobin 10.6 g/dL (12.0-16.0); Mean Corp Hgb Conc. 34.1 g/dL (33.0-37.0); Mean Corpuscular Volume 90.1 fL (81.0-99.0); Platelet Count 108 10^3/uL (130-400); Red Cell Dist. Width 11.8 % (11.5-14.5)
--- NOTE | 2024-11-26 08:46 | W.PN.NEURO.1 ---
Today's Communication / Plan
-
Continue thiamine 100 mg by mouth daily routinely
Check vitamin A and E levels to ensure no abnormalities
As outpatient, may benefit from coenzyme Q10 replacement
Neuro Assessment/Plan
Assessment
LP normal, some labs pending
head CT and MRI imgs rev'd, ventricular dilation
Encephalopathy with delusions, now stable
DDX tacrolimus (although level normal), paraneoplastic cause (less likely based on LP normal results)
Plan
Continue thiamine 100 mg by mouth routinely
Check vitamin A and E levels to ensure no abnormalities
As outpatient, may benefit from coenzyme Q10 replacement
Will follow pending results
Subjective/Objective
Subjective Data
Date of Service: November 26, 2024
No changes
Objective Data
Vital Signs
Temp Pulse Resp BP Pulse Ox
36.5 C 81 18 142/90 99
11/26/24 07:17 11/26/24 07:17 11/26/24 07:17 11/26/24 07:17 11/26/24 07:17
Lab Results
11/26/24 07:34
PT 13.4 Sec (11.4-14.6) 11/25/24 13:50
INR 0.99 11/25/24 13:50
Sodium 135 mmol/L (135-145) 11/25/24 07:25
Potassium 3.7 mmol/L (3.5-5.1) 11/25/24 07:25
BUN 23 mg/dl (7-17) H 11/25/24 07:25
Glucose 206 mg/dl (70-99) H 11/25/24 07:25
Calcium 9.2 mg/dl (8.4-10.2) 11/25/24 07:25
Vitamin B12 893 pg/ml (239-931) 11/25/24 07:25
Ur Buprenorphine Negative (Negative) 11/23/24 03:29
Patient Allergies
codeine Allergy (Verified 11/22/24 20:02)
Itching
Review of Systems
-
History Source: Patient
All other systems: Reviewed and negative
Constitutional: Fatigue
Neuro: Headache; Negative Dizzy
Past History
Past History
ED Past Medical History: IDDM and Other (Encephalopathy)
ED Past Surgical History: Other (Kidney transplant x 2 and pancreas transplant)
Social History
Tobacco: Non-smoker
Alcohol: Occasional
Drug: None
Family History
Family History: Other (Reviewed and noncontributory)
Medications
-
Medications:
Generic Name Dose Route Start Last Admin
Trade Name Freq PRN Reason Stop Dose Admin
Acetaminophen 1,000 mg 11/24/24 12:06 11/25/24 22:47
Acetaminophen 500 Mg Tablet PO 12/22/24 12:05 1,000 mg
Q8HPRN PRN Administration
pain
Aspirin 81 mg 11/23/24 18:00 11/23/24 17:49
Aspirin 81 Mg (Enteric Coated) Tablet PO 12/21/24 17:59 81 mg
On Hold: 11/24/24 08:01 QPM ANGIE Administration
Atenolol 12.5 mg 11/23/24 18:00 11/25/24 18:43
Atenolol 25 Mg Tablet PO 12/21/24 17:59 12.5 mg
QPM ANGIE Administration
Atorvastatin Calcium 10 mg 11/23/24 18:00 11/25/24 18:43
Atorvastatin (Lipitor) 10 Mg Tablet PO 12/21/24 17:59 10 mg
QPM ANGIE Administration
Cholecalciferol 50 mcg 11/23/24 14:15 11/26/24 10:11
Cholecalciferol (Vitamin D3) 50 Mcg Tablet (2,000 Units) PO 12/21/24 14:14 50 mcg
DAILY ANGIE Administration
Clonazepam 1 mg 11/23/24 15:00 11/26/24 10:08
Clonazepam 1 Mg Tablet PO 12/21/24 14:59 1 mg
DAILY ANGIE Administration
Clonazepam 2 mg 11/23/24 18:00 11/25/24 18:42
Clonazepam 1 Mg Tablet PO 12/21/24 17:59 2 mg
QPM ANGIE Administration
Dextrose 12.5 grams 11/23/24 00:47
Dextrose 50% (0.5 Grams/Ml) 50 Ml Syringe IV 12/21/24 00:46
[id number] PRN
hypoglycemia
Protocol
Famotidine 10 mg 11/24/24 08:00 11/26/24 10:08
Famotidine 20 Mg Tablet PO 12/22/24 07:59 10 mg
DAILY ANGIE Administration
Fludrocortisone Acetate 0.1 mg 11/23/24 08:00 11/24/24 07:56
Fludrocortisone Acetate 0.1 Mg Tablet PO 12/21/24 07:59 0.1 mg
On Hold: 11/24/24 12:19 DAILY ANGIE Administration
Glucagon 1 mg 11/23/24 00:47
Glucagon 1 Mg Vial IM 12/21/24 00:46
PRN PRN
hypoglycemia
Protocol
Heparin Sodium 5,000 units 11/23/24 00:47 11/24/24 07:58
Heparin 5,000 Units/Ml 1 Ml Vial SC 12/21/24 00:46 5,000 units
On Hold: 11/24/24 08:01 Q8 ANGIE Administration
Insulin Glargine 11 units/ 0.11 mls @ 0 mls/hr 11/23/24 08:00 11/26/24 10:03
Device SC 12/21/24 07:59 0.11 mls
DAILY ANGIE Administration
As Directed
Insulin Aspart 0 units 11/23/24 07:30 11/26/24 10:12
Insulin Aspart Low Resistance 300 Units/3 Ml Pen.Injctr SC 12/21/24 07:29 3 units
AC ANGIE Administration
Protocol
Levothyroxine Sodium 50 mcg 11/23/24 06:00 11/26/24 05:21
Levothyroxine 50 Mcg Tablet PO 12/21/24 05:59 50 mcg
DAILY @ 0600 ANGIE Administration
Ondansetron HCl 4 mg 11/24/24 14:08
Ondansetron 4 Mg/2 Ml Vial IV 12/22/24 14:07
Q6HPRN PRN
NAUSEA/VOMITING
Oxycodone HCl 5 mg 11/25/24 08:24 11/26/24 10:36
Oxycodone 5 Mg Regular Release Tablet PO 12/09/24 08:23 5 mg
Q4HPRN PRN Administration
mod sev pain
Pancrelipase 2 capsule 11/23/24 07:30 11/26/24 10:06
Pancrelipase (Zenpep) Delayed Release Capsule PO 12/21/24 07:29 2 capsule
AC ANGIE Administration
Polyethylene Glycol 17 grams 11/23/24 16:00 11/26/24 10:03
Polyethylene Glycol Powder 17 Grams Packet PO 12/21/24 15:59 Not Given
DAILY ANGIE
Prednisone 5 mg 11/23/24 08:00 11/26/24 10:07
Prednisone 5 Mg Tablet PO 12/21/24 07:59 5 mg
DAILY ANGIE Administration
Sennosides 8.6 mg 11/23/24 15:20 11/26/24 10:11
Sennosides (Senokot) 8.6 Mg Tablet PO 12/21/24 15:19 8.6 mg
BID ANGIE Administration
Sodium Chloride 0 flush 11/23/24 01:00
Sodium Chloride 0.9% (Flush) Syringe IV 12/21/24 00:59
PER PROTOCOL ANGIE
Tacrolimus 1.5 mg 11/23/24 00:47 11/26/24 10:06
Tacrolimus 0.5 Mg Capsule PO 12/21/24 00:46 1.5 mg
Q12@1000,2200 ANGIE Administration
Thiamine HCl 100 mg 11/25/24 12:00 11/26/24 10:10
Thiamine 100 Mg Tablet PO 11/27/24 08:01 100 mg
DAILY ANGIE Administration
Trazodone HCl 300 mg 11/23/24 18:00 11/25/24 18:41
Trazodone 150 Mg Tablet PO 12/21/24 17:59 300 mg
QPM ANGIE Administration
Vitamin B Complex/Vitamin C 1 caplet 11/23/24 15:00 11/26/24 10:07
Vitamin B Complex With Vitamin C Caplet PO 12/21/24 14:59 1 caplet
DAILY ANGIE Administration
[2024-11-26 08:47] LABS: Glucose - Point of Care 259 mg/dl (70-99)
[2024-11-26] MEDS: MIRALAX PO (10:03)
[2024-11-26] MEDS: LANTUS 0.11 UNITS SC (10:03)
[2024-11-26] MEDS: PROGRAF 1.5 MG PO (10:06)
[2024-11-26] MEDS: ZENPEP DELAYED RELEASE CAPSULE 2 CAPSULE PO (10:06)
[2024-11-26] MEDS: DELTASONE 5 MG PO (10:07)
[2024-11-26] MEDS: B COMPLEX w/VITAMIN C 1 CAPLET PO (10:07)
[2024-11-26] MEDS: PEPCID 10 MG PO (10:08)
[2024-11-26] MEDS: KLONOPIN 1 MG PO (10:08)
[2024-11-26 10:10] LABS: Blood Urea Nitrogen 20 mg/dl (7-17); Calcium 9.2 mg/dl (8.4-10.2); Carbon Dioxide 23 mmol/L (22-30); Chloride 104 mmol/L (98-107); Estimated Creatinine Clearance 19 ml/min; Glucose 273 mg/dl (70-99); Potassium 3.9 mmol/L (3.5-5.1); Sodium 133 mmol/L (135-145); eGFR 18.25
[2024-11-26] MEDS: VITAMIN B1 100 MG PO (10:10)
[2024-11-26] MEDS: VITAMIN D3 (cholecalciferol) 50 MCG PO (10:11)
[2024-11-26] MEDS: SENOKOT 8.6 MG PO (10:11)
[2024-11-26] MEDS: NOVOLOG FLEXPEN-LOW RESISTANCE 3 UNITS SC (10:12)
--- NOTE | 2024-11-26 10:34 | W.PN.HOSP.TC ---
Today's Communication/Plan
-
d/c planning
Assessment / Plan
Assessment / Plan
pt is a 49 year old female
1. Acute encephalopathy--had concern for NPH--ruled out?--cleared for d/c by neuro
-Associated with some balance issue and headache, question of possible NPH versus other metabolic reasons
-Tacrolimus level check pending
-Clinically low concern of PML
-Patient undergoing large-volume LP to rule out NPH
-CSF studies to r/o any infectious etiology as well
-Benzodiazepine dependence and should be weaned off slowly if possible.
-Patient also requesting oxycodone for headache. will need to cut back once appropriate
2. Nausea/vomiting--tolerating diet
-Possible Ozempic use relate
-increased ICP can also add to issue
-improved currently and maintained on symptomatic care
3. Benzodiazepine dependence:
Restarted home clonazepam (1 mg in the morning and 2 mg in the evening) and no issue so far
4. Chronic kidney disease stage IV--apprec renal--likely at baseline
-Creatinine trending down
-Renal function close to baseline
-Nephrology following and help appreciated
5. History of renal and pancreatic transplant
-living donor kidney with second transplant and pancreatic transplant in her 20s after failed first transplant of disease donor kidney
-Continue immunosuppression with tacrolimus and prednisone. Prednisone 5 mg p.o. daily, tacrolimus 1.5 mg twice daily.
-Checking tacrolimus level
-Nephrology recommend hold fludrocortisone with increased BPs
6. Diabetes mellitus type 1:
- On Tresiba and NovoLog as outpatient. Continue Lantus 11 units daily and insulin sliding scale.
- Continue pancreatic enzymes
7. Hypothyroidism:
Continue thyroid replacement, levothyroxine 50 mcg p.o. daily
8. Depression/anxiety:--will not change outpt doses but may be contributing to mental status and gait disturbances
- Continue trazodone 300 mg p.o. daily and benzodiazepine
- Also on Benadryl at bedtime but holding that for now.
Essential Hypertension: atenolol 12.5 mg daily in the evening
Hyperlipidemia: On atorvastatin 10 mg p.o. daily in the evening
GERD: On Pepcid at home on 40 mg p.o. daily in the evening but renally adjusted to 10 mg p.o. due to renal clearance.
DVT prophylaxis: Heparin SQ
CODE STATUS: Full code
OK for d/c
Anticipated Discharge: Today
Subjective/Interval History
-
Date of Service: November 26, 2024
pt says still feels a bit off
Objective Data
-
Labs:
Laboratory Results
11/26/24 11/26/24
07:34 09:24
WBC 3.3 L
Hgb 10.6 L
Hct 31.1 L
Plt Count 108 L
Sodium Cancelled 133 L
Potassium Cancelled 3.9
Chloride Cancelled 104
Carbon Dioxide Cancelled 23
BUN Cancelled 20 H
Creatinine Cancelled 3.0 H
Glucose Cancelled 273 H
Calcium Cancelled 9.2
Vital Signs:
max temp for 24 hours
11/25/24
23:03
Temp 98.0 F
Vital Signs
Temp Pulse Resp BP Pulse Ox
97.7 F 81 18 142/90 99
11/26/24 07:17 11/26/24 07:17 11/26/24 07:17 11/26/24 07:17 11/26/24 07:17
I&O
11/25/24 11/26/24 11/27/24
06:59 06:59 06:59
Intake Total 960 / 960 1200 / 1200
Balance 960 / 960 1200 / 1200
Review of Systems
-
All other systems: Reviewed and negative
Physical Exam
-
General: Well Developed, Well Nourished and No Apparent Distress
HEENT: Normocephalic and Atraumatic
Respiratory: Clear to Auscultation; Negative Wheezes or Rhonchi
Cardiac: Regular Rhythm and S1/S2; Negative Murmur
GI: Soft, Nontender, Nondistended and Normal Bowel Sounds
Musculoskeletal: No Clubbing, No Cyanosis and No Edema
Neuro: Awake and Alert
Psych: Calm
[2024-11-26] MEDS: ROXICODONE 5 MG PO (10:36)
--- NOTE | 2024-11-26 11:10 | CM ---
CM reviewed chart, patient seen bedside with mother, for discharge today. Patient agreeable to [facility], update to liaison on discharge. IMM verbally reviewed, provided with copy, placed in chart. Patients mother will transport home. CM will continue to
follow for all discharge planning needs.
Plan; home with [facility]
[2024-11-26 11:11] LABS: Glucose - Point of Care 270 mg/dl (70-99)
--- NOTE | 2024-11-26 12:23 | VNURNOTE ---
Home Health Liaison met with patient at bedside to discuss [facility] nurse/therapy, visits, schedule and homebound status. Patient is agreeable and understands that visits at home will be 2-3 x per week to assess and teach medical management.
Patient is aware that [facility] will contact them for start of care in 1-2 days after discharge from .
[facility] referral completed in [facility].
--- NOTE | 2024-11-26 13:14 | W.PN.NEPH.PH ---
Today's Communication / Plan
-
ok to d/c
f/u her neprologist
Assessment/Plan
-
Impression
hydrocephalus
Confusion, falls (no incontinence)
Living unrelated renal transplant, failed donor transplant
Chronic kidney disease stage 4
Type I diabetes mellitus
Pancreatic insufficiency, pancreatic transplant in her 20s
Chronic immunosuppression with tacrolimus prednisone only
hypertension
Acquired hypothyroidism
GERD
Anxiety/Depression
Hyperlipidemia
Plan
Follow BMP, creatinine appears to be at baseline at this time
tacrolimus level 4.3 acceptable, continue tacrolimus and prednisone, stress dose steroids not required
s/p LP 11/25, WBC only 3 no inf source
No evidence to support PML given recent CT scan, dolated ventricle but normal opening pressure of LP
Hold fludrocortisone given hypertension currently
d/c plan
d/w pt
-
-
Date of Service: November 26, 2024
CC / HPI / ROS
-
Chief Complaint:
Renal transplant
History of Present Illness:
WBC low but stable 3.3
Hemoglobin better at 10.6
BP stable
Creatinine stable 3., sodium 133
Review of Systems:
No chest pain or shortness of breath
no weakness
no n/v
Labs
-
Labs:
WBC 3.3 10^3/uL (4.8-10.8) L 11/26/24 07:34
RBC 3.45 10^6/uL (4.20-5.40) L 11/26/24 07:34
Hgb 10.6 g/dL (12.0-16.0) L 11/26/24 07:34
Hct 31.1 % (37.0-47.0) L 11/26/24 07:34
Plt Count 108 10^3/uL (130-400) L 11/26/24 07:34
Sodium 133 mmol/L (135-145) L 11/26/24 09:24
Potassium 3.9 mmol/L (3.5-5.1) 11/26/24 09:24
Chloride 104 mmol/L (98-107) 11/26/24 09:24
Carbon Dioxide 23 mmol/L (22-30) 11/26/24 09:24
BUN 20 mg/dl (7-17) H 11/26/24 09:24
Creatinine 3.0 mg/dL (0.6-1.0) H 11/26/24 09:24
eGFR 18.25 11/26/24 09:24
Glucose 273 mg/dl (70-99) H 11/26/24 09:24
Calcium 9.2 mg/dl (8.4-10.2) 11/26/24 09:24
Albumin 4.2 g/dl (3.5-5.0) 11/22/24 21:30
Physical Exam
-
Vital Signs:
Vital Signs
Temp Pulse Resp BP Pulse Ox
97.7 F 81 18 142/90 99
11/26/24 07:17 11/26/24 07:17 11/26/24 07:17 11/26/24 07:17 11/26/24 07:17
Cardiovascular:: Regular rate and rhythm
Respiratory:: Bilateral: CTA (decreased)
Lung Excursion:: Normal
Abdomen:: Nontender and Soft
Bowel Sounds:: Normal
Extremity Edema:: None: Bilateral:
Smith Catheter: No
--- NOTE | 2024-11-26 14:58 | W.DCSUMMARY ---
Discharge Summary
Discharge Data
Date of Admission: 11/23/24
Date of Discharge: 11/26/24
-
Pending Results: Yes
Additional Pending Results:
Purkinje/neuronal IgG
Zinc level
Cerebrospinal fluid paraneoplastic antibodies, VDRL, cryptococcus
Hospital Course
Primary care physician : Elbert Gee
Principal Discharge diagnosis : Acute encephalopathy, nausea/vomiting
Chronic Discharge diagnosis : Benzodiazepine dependence, chronic kidney disease stage IV, history of renal and pancreatic transplant, type 1 diabetes mellitus, essential hypertension
Hospital Course : Patient was a 49-year-old female with type 1 diabetes, renal failure status post transplant and pancreatic transplant who presented with confusion and mental status change. This has been ongoing for the past 1 to 2 weeks. She
complains of nausea and diffuse itching. She was started on Ozempic 2 months prior and 2 weeks ago it was discontinued. Patient was admitted.
Problem #1: Acute encephalopathy. Patient was seen in consultation by neurology and there was some concern for normal pressure hydrocephalus. Tacrolimus level was checked and was normal. She underwent large-volume lumbar puncture and CSF studies
are pending at this time. It is less likely to be infectious or paraneoplastic. Medication dependence including benzodiazepines and patient requesting oxycodone for headache could certainly be contributing. She has been cleared for discharge by
neurology.
Problem #2: Nausea and vomiting. Patient was recently started on Ozempic and that has been stopped. She may still be feeling the effects of the Ozempic. She did tolerate a diet prior to discharge.
Problem #3: All other medical issues. These include Benzodiazepine dependence, chronic kidney disease stage IV, history of renal and pancreatic transplant, type 1 diabetes mellitus, essential hypertension. These medical issues were stable during
her hospitalization. Medications were continued as able.
Patient is stable for discharge home at this time. If there are any questions regarding this dictation or her hospital stay, please do not hesitate to call. Our office number is [phone].
Time for discharge 33 minutes.
Important imaging findings :
BRAIN MRI IMPRESSION: Ventricular dilation is present, greater than expected in a 49-year-old. As described, MR findings suggest the possibility of normal pressure hydrocephalus.
Mild to moderate T2 and FLAIR white matter hyperintensities, commonly seen with aging and usually attributed to small vessel ischemic disease. These hyperintensities have not been shown to correlate with a focal neurologic deficit.
Procedure findings :
LUMBAR PUNCTURE IMPRESSION: Fluoroscopically guided lumbar puncture as described, evacuation of 32 mL of clear CSF. Opening pressure 15 cm of H2O.
Discharge Plan
-
Patient Disposition: Home with Home Care
Condition: Good
Diet: Diabetic, Carb Controlled
Activity: As tolerated
Driving Restrictions: No driving
Bathing Restrictions: None
Other Services: VN, PT and OT
Referrals:
Elbert Gee MD [Family Provider, Internal Medicine] - in less than 1 week
Prescriptions:
New
thiamine mononitrate (vit B1) 100 mg Tablet
100 mg PO DAILY Qty: 0 0RF
Continued
atorvastatin 10 mg Tablet
10 mg PO QPM
famotidine 40 mg Tablet
40 mg PO QPM
prednisone 5 mg Tablet
5 mg PO DAILY
atenolol 25 mg Tablet
12.5 mg PO QPM
clonazepam 2 mg Tablet
1 mg PO DAILY
clonazepam 2 mg Tablet
2 mg PO QPM
tacrolimus 0.5 mg Capsule
1.5 mg PO Q12H
insulin aspart U-100 [Novolog FlexPen U-100 Insulin] 100 unit/mL (3 mL) Insulin Pen
1 sliding scale dose SC MEALS
Patient Comments:
03/22/2024: 1 unit for > 150 BS for every 15 carbs
Dialyvite 100-1 mg Tablet
1 tab PO DAILY
cholecalciferol (vitamin D3) 50 mcg (2,000 unit) Tablet
50 mcg PO DAILY
insulin degludec [Tresiba FlexTouch U-100] 100 unit/mL (3 mL) Insulin Pen
11 unit SC DAILY
levothyroxine 50 mcg Tablet
50 mcg PO DAILY
Creon 24,000-76,000 -120,000 unit Capsule,Delayed Release(Dr/Ec)
1 cap PO AC
Held
aspirin 81 mg Tablet,Delayed Release (Dr/Ec)
81 mg PO QPM
Hold Instructions: Resume on 11/28/24. restart in 2 days
trazodone 150 mg Tablet
300 mg PO QPM
Hold Instructions: discuss taking this with your doctor
fludrocortisone 0.1 mg Tablet
0.1 mg PO DAILY
Hold Instructions: renal recommends holding this med due to higher BPs--discuss restarting with your doctor
diphenhydramine HCl 50 mg Capsule
100 mg PO HS
Hold Instructions: discuss restarting this with your doctor
Discharge Orders:
Discharge Patient (As Directed); Ordered 11/26/24
Ordered By: Cherelle Malcolm
Discharge Date and Time
Discharge Date/Time: 11/26/24 14:05
Print Language: [id number]
[2024-11-28 12:56] LABS: C.neoformans Antigen Negative (Negative)
== END 2024-11-26 14:05 | disposition home health service (06) | DRG 56 ==
LOC: 4 WEST ACU 00:17
PROVIDERS: Hospitalist; Nurse Practitioner Family; Physician Assistant; Psychiatry & Neurology Neurology; Radiology Vascular & Interventional Radiology; ADMITTING PHYSICIAN Hospitalist; ATTENDING PHYSICIAN Internal Medicine; CONSULT PHYSICIAN Psychiatry & Neurology Clinical Neurophysiology; CONSULT PHYSICIAN Specialist; EMERGENCY PHYSICIAN Student in an Organized Health Care Education/Training Program; FAMILY PHYSICIAN Internal Medicine
PROC: B01B1ZZ Fluoroscopy of Spinal Cord using Low Osmolar Contrast (ICD-10-PCS; 2024-11-25)
PROC: 009U3ZX Drainage of Spinal Canal, Percutaneous Approach, Diagnostic (ICD-10-PCS; 2024-11-25)
DX: G91.2 (Idiopathic) normal pressure hydrocephalus (principal); G92.8 Other toxic encephalopathy; D84.821 Immunodeficiency due to drugs; N17.9 Acute kidney failure, unspecified; N18.4 Chronic kidney disease, stage 4 (severe); F13.20 Sedative, hypnotic or anxiolytic dependence, uncomplicated; T86.19 Other complication of kidney transplant; I12.9 Hypertensive chronic kidney disease with stage 1 through stage 4 chronic kidney disease, or unspecified chronic kidney disease; E03.9 Hypothyroidism, unspecified; K21.9 Gastro-esophageal reflux disease without esophagitis; F32.A Depression, unspecified; F41.9 Anxiety disorder, unspecified; Z87.891 Personal history of nicotine dependence; E78.5 Hyperlipidemia, unspecified
CPT/HCPCS: 62328; 70450; 70551; 73130; 80048; 80053; 80197; 80306; 81003; 81015; 82077; 82140; 82607; 82728; 82746; 82945; 82962; 83036; 84157; 84443; 84446; 84590; 84630; 84703; 85025; 85027; 85610; 86255; 86592; 87086; 87102; 87116; 87327; 87483; 89051; 92523; 92610; 93005; 96360; 97116; 97163; 97530; 99285

== ENCOUNTER → 2025-01-08 11:17 | Outpatient (REF) | payer MEDICARE, BC, SELFPAY ==
[2025-01-08 12:14] LABS: Hematocrit 29.0 % (37.0-47.0); Hemoglobin 9.8 g/dL (12.0-16.0); Mean Corp Hgb Conc. 33.8 g/dL (33.0-37.0); Mean Corpuscular Volume 92.7 fL (81.0-99.0); Nucleated Red Blood Cells % 0 %; Platelet Count 165 10^3/uL (130-400); Red Cell Dist. Width 12.6 % (11.5-14.5)
[2025-01-08 13:29] LABS: ALT (SGPT) 16 U/L (0-35); AST (SGOT) 15 U/L (14-36); Albumin 4.2 g/dl (3.5-5.0); Alkaline Phosphatase 48 U/L (38-126); Blood Urea Nitrogen 39 mg/dl (7-17); Calcium 9.6 mg/dl (8.4-10.2); Carbon Dioxide 22 mmol/L (22-30); Chloride 103 mmol/L (98-107); Glucose 179 mg/dl (70-99); Potassium 4.5 mmol/L (3.5-5.1); Sodium 133 mmol/L (135-145); Total Protein 6.6 g/dl (6.3-8.2); eGFR 14.66
[2025-01-08 13:44] LABS: Vitamin D, 25-OH*** 58.1 ng/mL (30-80)
[2025-01-09 21:12] LABS: Hepatitis B Surface Antigen Negative (Negative)
[2025-01-09 21:30] LABS: Hepatitis C Antibody Negative (Negative)
[2025-01-11 09:13] LABS: Tacrolimus (Prograft - FK506) 5.7 ng/mL
== END ==
LOC: REG 11:17
PROVIDERS: ATTENDING PHYSICIAN Internal Medicine Nephrology; FAMILY PHYSICIAN Internal Medicine
DX: N18.5 Chronic kidney disease, stage 5 (principal); E87.21 Acute metabolic acidosis
CPT/HCPCS: 36415; 71046; 80053; 80197; 82306; 83970; 85025; 86803; 87340

== ENCOUNTER → 2025-04-08 12:50 | Outpatient (REF) | payer MEDICARE, BC, SELFPAY | LOC: RAD 12:50 | PROVIDERS: ATTENDING PHYSICIAN Internal Medicine Nephrology | DX: N18.6 End stage renal disease (principal) | CPT/HCPCS: 71046 ==